=== PATIENT | male | born 1945 | race Caucasian/White ===

== ENCOUNTER → 2020-11-24 14:39 | Outpatient (CLI) | payer MEDICARE, BC, SELFPAY | PROVIDERS: PCP Nurse Practitioner; Referring Provider Internal Medicine Gastroenterology; Visit Provider Internal Medicine Gastroenterology | DX: Z11.59 Encounter for screening for other viral diseases (principal) | CPT/HCPCS: 87635; C9803; U0002 ==

== ENCOUNTER → 2022-02-02 | Outpatient (CLI) | payer MEDICARE, BC, SELFPAY ==
[2022-02-02 12:55] LABS: PSA,Total- Diagnostic 2.66 ng/mL (0.0-4.0)
== END | disposition home or self-care (01) ==
PROVIDERS: PCP Nurse Practitioner; Referring Provider Urology; Visit Provider Urology
DX: R97.20 Elevated prostate specific antigen [PSA] (principal)
CPT/HCPCS: 36415; 84153

== ENCOUNTER → 2022-02-09 | Outpatient (CLI) | payer MEDICARE, BC, SELFPAY ==
--- NOTE | 2022-02-09 07:12 | CT_ITS ---
STUDY: CT ABDOMEN AND PELVIS WITHOUT CONTRAST REASON FOR EXAM: Male, 77 years old. HEMATURIA RADIATION DOSAGE (If Supplied By Facility): CTDIvol = ( 11.98 ) mGy, DLP = ( 62.23 ) mGycm TECHNIQUE: Transaxial images were obtained from the dome of the diaphragm to the symphysis pubis without oral contrast, and without intravenous contrast. Sagittal and coronal images were reconstructed. Individualized dose optimization techniques were used for this CT. COMPARISON: None. FINDINGS: The visualized lung bases are unremarkable. The visualized portions of the heart are within normal limits. Normal liver. There are surgical clips in the gallbladder fossa consistent with a prior cholecystectomy. Normal spleen. Normal pancreas. Normal bilateral adrenal glands. Normal right kidney. Normal left kidney. There is a small hiatal hernia. Normal small intestine. Normal colon. There is non-visualization of the appendix. Normal abdominal aorta. Normal inferior vena cava. Normal retroperitoneum. Normal urinary bladder. Normal abdominal wall. Mild extra scoliosis of the lumbar spine with degenerative disc disease. CT/Abdomen/Pelvis without Cont IMPRESSION: No renal or ureteral stone. Electronically Signed: Emiliano Alexandre MD at 9:33 EDT ,
== END | disposition home or self-care (01) ==
LOC: CT 07:11
PROVIDERS: PCP Nurse Practitioner; Referring Provider Urology; Visit Provider Urology
DX: R31.9 Hematuria, unspecified (principal)
CPT/HCPCS: 74176

== ENCOUNTER 2022-04-12 14:39 | Emergency (ER) | payer MEDICARE, BC, SELFPAY ==
[2022-04-12 14:40] VITALS: BP 150/89; PULSE 90; RESP 16; TEMP 36.1; O2SAT 100; BMI 25.6
--- NOTE | 2022-04-12 14:50 | CT_ITS ---
STUDY: CT BRAIN WITHOUT CONTRAST REASON FOR EXAM: Male, 77 years old. fall, headache RADIATION DOSAGE (If Supplied By Facility): CTDIvol = ( 44.99 ) mGy, DLP = ( 812.98 ) mGycm TECHNIQUE: Transaxial CT imaging of the brain was performed without administration of intravenous contrast material. Individualized dose optimization techniques were used for this CT. COMPARISON: No relevant priors. FINDINGS: Normal soft tissue structures. Normal calvarium. There is mild cerebral atrophy with widening of the extra-axial spaces and ventricular dilatation. There are areas of decreased attenuation within the white matter tracts of the supratentorial brain, consistent with microvascular disease changes. Normal basal ganglia and thalami. Normal brainstem. Normal cerebellum. There is no intracranial hemorrhage. There are no findings of an acute ischemic infarction. Normal visualized paranasal sinuses. CT/Brain/Head without Contrast IMPRESSION: Chronic involutional changes of the brain. Electronically Signed: Emiliano Alexandre MD at 16:13 EDT ,
--- NOTE | 2022-04-12 14:51 | EKG12_ITS ---
Test Reason : confusion Blood Pressure : / mmHG Vent. Rate : 085 BPM Atrial Rate : 085 BPM P-R Int : 154 ms QRS Dur : 114 ms QT Int : 406 ms P-R-T Axes : 037 -41 015 degrees QTc Int : 483 ms Normal sinus rhythm Left axis deviation Right bundle branch block Minimal voltage criteria for LVH, may be normal variant ( R in aVL ) Abnormal ECG Confirmed by BABAR ALLISON, CHARLEY ([id number]), managing editor ALMA REYES ([id number]) on 04/13/2022 1:46:09 PM Referred By: Confirmed By:CHARLEY ECKERT MD
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
--- NOTE | 2022-04-12 15:35 | RAD_ITS ---
STUDY: X-RAY - LEFT SHOULDER REASON FOR EXAM: Male, 77 years old. pain TECHNIQUE: 4 view(s) of the shoulder. COMPARISON: None. FINDINGS: Normal glenohumeral articulation. Normal acromioclavicular joint. Normal acromion. Normal humeral head and visualized proximal humerus. The soft tissue structures are unremarkable. Normal visualized pulmonary apex. RAD/Shoulder min 2 Views IMPRESSION: Normal x-ray examination of the shoulder. Electronically Signed: Emiliano Alexandre MD at 15:57 EDT ,
--- NOTE | 2022-04-12 15:35 | RAD_ITS ---
STUDY: X-RAY CHEST REASON FOR EXAM: Male, 77 years old. chest wall pain TECHNIQUE: Single AP portable view of the chest. COMPARISON: None. FINDINGS: The lungs are clear and expanded. There is no demonstrated pleural abnormality. Normal size heart. Normal mediastinum and igor. Normal visualized pulmonary arteries. Normal visualized aortic arch and descending thoracic aorta. Normal visualized thoracic spine. Normal visualized ribs, clavicles, and shoulders. There is no demonstrated abnormality of the visualized soft tissue structures of the upper abdomen. RAD/Chest 1 View (Portable) IMPRESSION: Normal x-ray examination of the chest. Electronically Signed: Emiliano Alexandre MD at 15:58 EDT ,
[2022-04-12 15:40] LABS: Absolute Lymphocyte Count 1.71 X10^3/uL (0.83-4.51); Basophil# 0.03 X10^3/uL; Basophil% 0.3 % (0-1); Eosinophil# 0.12 X10^3/uL; Eosinophils% 1.2 % (0-5); Hemoglobin 12.4 g/dL (13.0-16.5); Lymphocyte # 1.71 X10^3/ul (0.83-4.51); Lymphocyte % 17.8 % (19-41); Mean Corp Hgb Conc 34.4 g/dL (32-36); Monocyte# 0.71 X10^3/uL; Monocyte% 7.4 % (0-10); NRBC Flagged by Analyzer 0 % (0-5); Neutrophil # 7.02 X10^3/uL (2.7-7.7); Neutrophil % 72.9 % (47-70); Platelet Count 223 K/mm3 (150-450); RBC Distribution Width CV 13.6 % (11.6-14.6); RBC Distribution Width SD 45.8 fl (35.1-43.9); Red Blood Count 3.87 M/mm3 (4.6-6.2); White Blood Count 9.6 K/mm3 (4.4-11.0)
[2022-04-12 15:44] LABS: Anion Gap 4 (5-15); BUN 14 mg/dL (7-18); BUN/Creat Ratio 11.5 RATIO (10-20); Chloride 107 mmol/L (98-107); Creatinine, Serum 1.22 mg/dL (0.70-1.30); EST Glomerular Filtration Rate 61 mL/min (>60); Est Glom Filt Rate - Afr Amer 74 mL/min (>60); Estimated Creatinine Clearance 53.89 ml/min; Glucose 114 mg/dL (74-106); Potassium 3.3 mmol/L (3.5-5.1); Sodium Level 140 mmol/L (136-145)
[2022-04-12 15:51] LABS: Bedside Glucose 106 mg/dL (74-106)
[2022-04-12 16:43] VITALS: BP 129/84; PULSE 76; RESP 17; O2SAT 99
== END 2022-04-12 16:43 | disposition home or self-care (01) ==
PROVIDERS: Physician Assistant; Emergency Provider Emergency Medicine; PCP Nurse Practitioner Family; Visit Provider Emergency Medicine
DX: S06.0X0A Concussion without loss of consciousness, initial encounter (principal); S43.402A Unspecified sprain of left shoulder joint, initial encounter; E03.9 Hypothyroidism, unspecified; Z79.899 Other long term (current) drug therapy; W11.XXXA Fall on and from ladder, initial encounter; I45.10 Unspecified right bundle-branch block
CPT/HCPCS: 70450; 71045; 73030; 80048; 82962; 85025; 93005; 99283; A4216

== ENCOUNTER 2022-05-22 09:30 | Outpatient (RCR) | payer MEDICARE, BC, SELFPAY ==
--- NOTE | 2022-04-23 10:39 | HP.PTEVAL ---
Patient's Visit Information MAKSIM OBRIEN is a 77 year old M referred to Physical Therapy by DEMARCO Thornton with a diagnosis of Distal Clav Fracture. Date of Evaluation: 04/23/22 Physical Therapist: Keturah Felipe DPT - Visit Plan Frequency: 2x /Week Duration: 4 Weeks Plan: Distal Clav Fracture- GENTLE. Focus on UE ROM and Scapular s/s. HEP Given IE: Posture, Shoulder Flexion Cane, Shoulder Abduction Cane, Wall Wash- educated in sling use for crowds. - Subjective Left Distal Clav Fracture- Patient reports that he fell off a step ladder about 2 weeks ago. He went to the ER- he was unconscious and still does not remember the accident. They took an x-ray which showed that it was not broken but he has had recent x-rays which showed it was broken. On Saturday they brought him back to have x-rays done since the swelling is down. Distal Clav Fracture. Reports the pain is achy in the shoulder- and can be the most painful when he ties his shoes. Worst: 06/11 Best: 2-11/09. Eases: massage. Sleep: disturbed- takes pain medication at night which helps him sleep- but its hard because he sleeps on the left side. Right hand dominate. He does not wear a sling because its uncomfortable. Lives with his and she is able to help as needed. He was fully I prior to fall and can still do it with modification. He has a hard time getting his socks/shoes on due to pain. He is normally pretty active - he does exercise throughout the day. PMHx/Meds: no changes since [facility]- addition of Gallbladder surgery. - Objective Posture: FH, RS- can correct with verbal cues but does not maintain. Gait: decreased left side arm swing and trunk rotation. Palpation: tender along distal clav with light pressure. ROM: AROM: flexion: 130 degrees, Abd: 120 degrees, IR: equal to other side, ER: 50 degrees, Elbow/Wrist/Hand: WFL. Strength: scap: fair minus, Shoulder isometric at neutral: 4+/5 without discomfort - Balance/Special Test Scores Quick DASH Score: 54.5450 - Goals Goal 1:: Patient will be I with HEP and progression Goal Time Frame: 4-6 Weeks Goal 2:: Patient will maintain proper posture t/o tx session to demo increased core s/s Goal Time Frame: 4-6 Weeks Goal 3:: Patient will demo full AROM of the left shoulder Goal Time Frame: 4-6 Weeks Goal 4:: Patient will report 80% improvement Goal Time Frame: 4-6 Weeks Goal 5:: Patient will sleep without issues for 1 week Goal Time Frame: 4-6 Weeks - Rehabilitation Potential Physical Therapy Diagnosis: Patient presents with hypomobility- he has decreased UE strength/stabilization, ROM, flex and muscular endurance s/p fall and distal clav fracture leading to poor posture and increased pain with ADL's. Rehabilitation Potential: Good - Anticipated Interventions Patient/Client Instruction: Educate patient on: Benefits of Fitness Program Therapeutic Exercise to Include: Strength training, Endurance training, Body mechanics, Postural training, Flexibilty training, Neuromotor development, Passive ROM, Active ROM, Dynamic Lumbar Stabilization, Scapular Strength/Stabilization For the Purpose of:: To improve muscle performance and motor function Cryotherapy (ice pack, ice massage): Yes Thermo therapy (hot pack): Yes Thank you for the opportunity to evaluate your patient. For Medicare and Medicare HMO plans, please review the plan of care and approve it. It will need to be FAXED BACK to us at [phone] for Medicare purposes. For Medicare only, by signing this I certify the plan of care. Please let me know if there are questions or concerns regarding this plan of care. Physician Signature: Date:
--- NOTE | 2022-05-22 10:12 | HP.PTDCSUM ---
It has been my pleasure to treat MAKSIM OBRIEN referred by DEMARCO Thornton, with the diagnosis of LEFT Distal Clav Fracture for a total of 9 visit(s). Discharge Date: Please see the following information for a summary of their discharge status. Subjective: Patient reports that he has no pain- knows its still healing. Does not keep him from sleeping- he does take OTC the medication prior to coming to therapy. At this time there is nothing he can't do. He is not lifting with the left shoulder. He is tending to shy away from using it to avoid issues. Right hand dominate. He feels comfortable doing all of his exercises at home. % Improvement: 100 Objective/Function: Posture: mild FH, RS. Gait: good arm swing and trunk rotation Palpation: not tender to touchROM: AROM: WNL in all planes, Elbow/Wrist/Hand: WFL. Strength: scap: fair plus, Shoulder isometric at neutral: 5/5 without discomfort Goal 1:: Patient will be I with HEP and progression Goal Progress: Goal Met Goal 2:: Patient will maintain proper posture t/o tx session to demo increased core s/s Goal Progress: Goal Met Goal 3:: Patient will demo full AROM of the left shoulder Goal Progress: Goal Met Goal 4:: Patient will report 80% improvement Goal Progress: Goal Met Goal 5:: Patient will sleep without issues for 1 week Goal Progress: Goal Met Plan: 05/22/22: Discharge to I HEP- encouraged to call if questions or concerns. Distal Clav Fracture- GENTLE. Focus on UE ROM and Scapular s/s. HEP Given IE: Posture, Shoulder Flexion Cane, Shoulder Abduction Cane, Wall Wash- educated in sling use for crowds. If there are questions or concerns regarding this patient's physical therapy, please feel free to call me at [phone]. Thank you for the referral of this patient. Sincerely, Keturah Felipe, DPT Balance/Gait/Functional tests - Balance/Special Test Scores Quick DASH Score: 0
== END 2022-05-22 19:00 | disposition home or self-care (01) ==
LOC: PT 09:30
PROVIDERS: PCP Nurse Practitioner Family; Referring Provider Physician Assistant Surgical; Visit Provider Physician Assistant Surgical
DX: S40.012D Contusion of left shoulder, subsequent encounter (principal)
CPT/HCPCS: 97110; 97162; 97164

== ENCOUNTER → 2023-03-25 | Outpatient (CLI) | payer MEDICARE, BC, SELFPAY ==
[2023-03-25 11:22] LABS: Absolute Lymphocyte Count 1.97 X10^3/uL (0.83-4.51); Basophil# 0.03 X10^3/uL; Basophil% 0.4 % (0-1); Eosinophil# 0.21 X10^3/uL; Eosinophils% 3.1 % (0-5); Hematocrit 39.6 % (40-54); Hemoglobin 13.1 g/dL (13.0-16.5); Lymphocyte # 1.97 X10^3/ul (0.83-4.51); Lymphocyte % 29.2 % (19-41); Mean Corp Hgb Conc 33.1 g/dL (32-36); Mean Corpuscular Hgb 31.6 pg (27.0-32.0); Mean Corpuscular Volume 95.4 fL (80-94); Mean Platelet Vol. 11.2 fl (6.2-12.0); Monocyte# 0.49 X10^3/uL; Monocyte% 7.3 % (0-10); NRBC Flagged by Analyzer 0 % (0-5); Neutrophil # 4.04 X10^3/uL (2.7-7.7); Neutrophil % 59.9 % (47-70); Platelet Count 213 K/mm3 (150-450); RBC Distribution Width CV 13.2 % (11.6-14.6); RBC Distribution Width SD 46.7 fl (35.1-43.9); RET-HE 34.6 pg (30-35); Red Blood Count 4.15 M/mm3 (4.6-6.2); Reticulocyte Count 1.32 % (0.5-1.5); White Blood Count 6.8 K/mm3 (4.4-11.0)
[2023-03-25 11:52] LABS: Vitamin B12 791 pg/mL (211-911); Vitamin D,25 Hydroxy 41.2 ng/mL
[2023-03-25 13:43] LABS: PSA,Total- Diagnostic 2.43 ng/mL (0.0-4.0)
== END | disposition home or self-care (01) ==
PROVIDERS: PCP Nurse Practitioner Family; Referring Provider Nurse Practitioner Family; Visit Provider Nurse Practitioner Family
DX: N40.1 Benign prostatic hyperplasia with lower urinary tract symptoms (principal); E55.9 Vitamin D deficiency, unspecified; D64.9 Anemia, unspecified
CPT/HCPCS: 36415; 82306; 82607; 82746; 84153; 85025; 85045

== ENCOUNTER → 2023-04-12 | Outpatient (CLI) | payer MEDICARE, BC, SELFPAY ==
--- NOTE | 2023-04-12 07:39 | RDU_ITS ---
Reason For Study: HTN Right Renal Artery Left Renal Artery Right renal artery ostium Left renal artery ostium 100.8/27.8 155.2/38.6 RSV/EDV. PSV/EDV. Right renal artery proximal Left renal artery proximal PSV/EDV 155.2/41.2 PSV/EDV. 100.8/25.9 . Right renal artery mid 113.7/36.0 Left renal artery mid 92.0/26.1 PSV/EDV. PSV/EDV . Right renal artery distal Left renal artery distal 76.1/25.7 140.8/37.7 PSV/EDV. PSV/EDV. Right RAR 1.58. Left RAR 1.02. Right Renal Parenchyma Left Renal Parenchyma Upper Pole Medula 37.3/11.5 Left upper pole medulla 27.4/10.3 PSV/EDV. PSV/EDV . Right upper pole medulla EDR 0.30 . Left upper pole medulla EDR 0.40 . Right upper pole medulla R.I. Left upper pole medulla R.I. 0.62 . 0.69 . UP Cortex 17.0/6.1 PSV/EDV. Upper Samm Cortx 25.2/8.2 PSV/EDV. Left upper pole cortex EDR 0.40 . Right upper pole cortex EDR 0.30 . Left upper pole cortex R.I. 0.64 . Right upper pole cortex R.I. 0.68 . Left lower Pole medulla 19.8/7.5 Right lower Pole medulla 24.1/8.7 PSV/EDV . PSV/EDV . Left lower pole medulla EDR 0.40 . Right lower pole medulla EDR 0.40 . Left lower pole medulla R.I. 0.62 . Right lower pole medulla R.I. Lower Pole Cortx 16.5/5.6 PSV/EDV. 0.64 . Left lower pole cortex EDR 0.30 . Lower Pole Cortex 18.1/7.1 PSV/EDV. Left lower pole cortex R.I. 0.66 . Right lower pole cortex EDR 0.40 . Left Renal Hilar Right lower pole cortex R.I. 0.61 . LT Hilar avg 64.4/20.5 PSV/EDV . Right Renal Hilar Left hilar acceleration time 50 Right Hilar avg 73.2/25.1 PSV/EDV. m/sec. Right hilar acceleration time 40 Left Renal Dimensions m/sec. Left kidney size 10.01 cm . Right Renal Dimensions Left cortical dimension 1.57 cm . Right kidney size 10.49 cm . Right cortical dimension 1.60 cm . Aorta Proximal abdominal aorta 2.16 cm . Proximal abdominal aorta peak systolic velocity is 71.4 cm/sec . Distal abdominal aorta 1.62 cm . Distal abdominal aorta peak systolic velocity is 98.5 cm/sec . VL/Renal Artery Duplex Ultrasound Interpretation Summary Less than 60% stenosis of the right renal artery with maintained of the right r enal length of 10.49 cm Less than 60% stenosis left renal artery with maintained left renal length of 1 0.01 cm Renal resistivity indices appear normal bilaterally suggesting maintained paren chymal function Ordering Physician: Sylvia Trevizo Referring Physician: Sylvia Trevizo Performed By: Keny Trujillo RVT
== END | disposition home or self-care (01) ==
LOC: CVS 07:38
PROVIDERS: PCP Nurse Practitioner Family; Referring Provider Nurse Practitioner Family; Visit Provider Nurse Practitioner Family
DX: I10 Essential (primary) hypertension (principal)
CPT/HCPCS: 93975

== ENCOUNTER → 2023-10-24 | Outpatient (CLI) | payer MEDICARE, BC, SELFPAY ==
--- NOTE | 2023-10-24 08:03 | ECHOD_ITS ---
Reason For Study: HTN Procedure This was a 2D Doppler, Color Flow transthoracic echocardiogram. Exam performed in department. Left Ventricle Normal left ventricle. Left ventricular systolic function is normal. The estimated ejection fraction is 60 %. No regional wall motion abnormalities noted. Right Ventricle Normal RV size. Normal systolic function. Atria Normal left atrium. Mitral Valve Normal mitral valve. Tricuspid Valve Normal tricuspid valve. Mild (1+) tricuspid valve insufficiency. Pulmonary artery systolic pressure is 24 mmHg. Aortic Valve Normal aortic valve. Trisinus/trileaflet aortic valve. Mild (1+) aortic valve insufficiency. Pulmonic Valve Normal pulmonic valve. Great Vessels Normal aortic root. The pulmonary artery is normal size. Normal inferior vena cava. Pericardium/Pleural No pericardial effusion. MMode/2D Measurements & Calculations LVIDd: 4.4 cm IVSd: 0.71 cm Ao root diam: 3.1 cm LVIDs: 2.5 cm LVPWd: 1.1 cm FS: 42.7 % LAV(MOD-bp): 54.1 ml LVAd ap4: 32.9 cm2 LVAd ap2: 20.8 cm2 LAV(MOD-bp) Indexed: 26.3 ml/m2 LVLd ap4: 8.3 cm LVLd ap2: 6.9 cm LAV(MOD-sp2): 59.2 ml EDV(MOD-sp4): 108.5 ml EDV(MOD-sp2): 54.7 ml LAV(MOD-sp4): 44.4 ml EDV(sp4-el): 111.4 ml EDV(sp2-el): 53.7 ml LVAs ap4: 19.8 cm2 LVAs ap2: 12.7 cm2 LVLs ap4: 6.7 cm LVLs ap2: 5.8 cm ESV(MOD-sp4): 48.3 ml ESV(MOD-sp2): 24.0 ml ESV(sp4-el): 49.6 ml ESV(sp2-el): 23.3 ml EF(MOD-sp4): 55.5 % EF(MOD-sp2): 56.0 % EF(sp4-el): 55.5 % SV(MOD-sp4): 60.2 ml SV(MOD-sp2): 30.6 ml SV(sp4-el): 61.8 ml LA dimension(2D): 3.9 cm LA A4 area: 16.1 cm2 RA A4 area: 17.5 cm2 TAPSE: 2.6 cm Time Measurements MV dec time: 0.27 sec Doppler Measurements & Calculations MV E max miller: 73.2 cm/sec Lat Peak E' Miller: 9.4 cm/sec Med Peak E' Miller: 6.4 cm/sec MV A max miller: 114.5 cm/sec E/E' lat: 7.8 E/E' med: 11.4 MV E/A: 0.64 MV V2 max: 135.2 cm/sec MV P1/2t max miller: 90.5 cm/sec Ao V2 max: 154.3 cm/sec MV max P.3 mmHg MV P1/2t: 89.8 msec Ao max P.5 mmHg MV V2 mean: 66.0 cm/sec MV dec slope: 295.3 cm/sec2 Ao V2 mean: 113.2 cm/sec MV mean P.1 mmHg Ao mean P.7 mmHg MV V2 VTI: 33.5 cm MVA(P1/2t): 2.4 cm2 Ao V2 VTI: 29.6 cm AV (velocity ratio): 0.64 AI max miller: 379.3 cm/sec LV V1 max: 100.5 cm/sec PA V2 max: 118.2 cm/sec AI max P.5 mmHg LV V1 max P.0 mmHg PA V2 mean: 88.1 cm/sec AI dec slope: 198.5 cm/sec2 LV V1 mean P.3 mmHg AI P1/2t: 559.8 msec LV V1 mean: 71.0 cm/sec LV V1 VTI: 18.9 cm TR max miller: 228.4 cm/sec TR max P.9 mmHg ECHO/Echo Complete Interpretation Summary Normal left ventricle. Left ventricular systolic function is normal. The estimated ejection fraction is 60 %. Mild (1+) aortic valve insufficiency. Ordering Physician: Sylvia Trevizo Referring Physician: Sylvia Trevizo Performed By: Honey Kaye RDCS, RVT
--- OUTSIDE RECORDS SUMMARY | 2023-10-24 08:27 | XMS RPT_ITS | CCD ---
Author Name Unknown Address [address] [place] [address] Organization [facility] Care Team Providers Care Classifier Tender Name Role Phone Masha Rouse Unavailable Rosalinda Dia Unavailable Maureen Thorne Unavailable Unavailable Unavailable Unavailable Ruy Hansen Unavailable Unavailable Ruy Miner Unavailable Unavailable Masha Rouse CNP Unavailable Rosalinda Dia MD Unavailable Ruy Miner LPN Unavailable Unavailable Unavailable Unavailable Keith Alvarez MD Unavailable [phone] Masha Rouse Unavailable Rosalinda Dia MD Unavailable Shiela Butler LPN Unavailable Unavailable Sylvia Trevizo CNP Unavailable Masha Rouse Unavailable Sylvia Trevizo CNP Unavailable Yoli Lyons LPN Unavailable Unavailable Tamika Chicas MA Unavailable Unavailable Sylvia Trevizo CNP Attending Unavailable Masha Rouse Referring Unavailable Sylvia Trevizo CNP Consulting Unavailable Augusta Gavin CMA Unavailable Unavailable Medications Current Medications Medication Drug Class(es) Dates Sig (Normalized) Sig (Original) vitamin b12 2.5 mg sublingual tablet (20 sources) Vitamin B12 Start: 07-03-2023 take 1 tablet under the tongue every week cyanocobalamin (vit B-12) 2,500 mcg sublingual tablet 1 (one) Tablet once a week for 0 days Quantity: 30 {Tablet} Refills: 6 Ordered: 03-Jul-2023 Santhosh RACHELLESylvia Start : 03-Jul-2023 Active Completed/Discontinued Medications Medication Drug Class(es) Dates Sig (Normalized) Sig (Original) amLODIPine 5 mg oral tablet (5 sources) Dihydropyridine Calcium Channel Logan Start: 06-27-2023 take 1 tablet by mouth once daily amLODIPine 5 mg oral tablet 1 Tablet daily for 90 days Quantity: 90 {Tablet} Refills: 1 Ordered: 27-Jun-2023 Santhosh RACHELLESylvia Start : 27-Jun-2023 Active Problems Active Problems Problem Classification Problem Date Documented Da te Episodic/Chronic Abdominal hernia (20 sources) Hiatal hernia; Translations: [Hiatal hernia] 06-11-2022 Episodic Past or Other Problems Problem Classification Problem Date Documented Date Episodic/Chronic Residual codes; unclassified (9 sources) Requires a tetanus booster; Translations: [Need for prophylactic vaccination with tetanus toxoid alone] Resolved: 05-18-2016 05-18-2016 Episodic Unclassified (20 sources) Low HDL (272.5) Unclassified (20 sources) Well Male Exam (V70.0) Unclassified (20 sources) Unspecified Diagnosis 04-22-2018 Unclassified (20 sources) Abnormal Cardiac Test (794.30) Unclassified (20 sources) Need for prophylactic vaccination with tetanus toxoid alone (V03.7) Unclassified (20 sources) Preprocedural examination done; Translations: [Pre-op evaluation] 03-29-2020 Results Test Name Value Interpretation Reference Range Facil ity Vital Signs Date Time Vital Sign Value Performing Clinician Facility 04-09-2023 09:38-0400 Body height 180.34 cm Augusta Gavin [facility]; [facility] Work Phone: 04-09-2023 09:38-0400 Body mass index (BMI) [Ratio] 27.27 kg/m2 Augusta Gavin [facility]; [facility] Work Phone: 04-09-2023 09:38-0400 Body surface area Derived from formula 2.09 m2 Augusta Gavin CMA [facility]; [facility] Work Phone: 04-09-2023 09:38-0400 Body temperature 97.2 [degF] Augusta Gavin [facility] Comprehensi ve [facility]; [facility] Work Phone: Encounters Encounter Date Encounter Type Care Provider Facility Start: 04-09-2023 End: 04-19-2023 Office outpatient visit 15 minutes Sylvia Trevizo RACHELLE Work Phone: [facility] Start: 04-09-2023 Review Sylvia Trevizo RACHELLE Work Phone: [facility] Start: 03-26-2023 End: 03-26-2023 Office outpatient visit 15 minutes Sylvia Trevizo RACHELLE Work Phone: [facility] Start: 03-09-2023 End: 03-09-2023 Patient encounter procedure Sylvia Trevizo RACHELLE Work Phone: [facility] Start: 12-25-2022 ambulatory Sylviadomenica Trevizo [facility] Start: 12-25-2022 End: 01-07-2023 Office outpatient visit 15 minutes Sylviadomenica Trevizo RACHELLE Work Phone: [facility] Start: 12-25-2022 Review Sylvia Trevizo 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 Work Phone: [facility] Start: 06-05-2022 End: 06-11-2022 Office outpatient visit 15 minutes Sylviadomenica Trevizo RACHELLE Work Phone: [facility] Start: 05-08-2022 End: 05-15-2022 Office outpatient visit 15 minutes Sylviadomenica Trevizo RACHELLE Work Phone: [facility] Start: 12-05-2021 End: 12-05-2021 Office outpatient visit 15 minutes Masha Rouse Work Phone: [facility] Start: 11-27-2021 End: 11-27-2021 Office outpatient visit 10 minutes Masha Boyceisaias Work Phone: [facility] Start: 11-22-2021 End: 11-22-2021 Annotation/Addendum Masha Boyceisaias Work Phone: [facility] Start: 08-14-2021 End: 08-14-2021 Annotation/Addendum Masha Boyceisaias BUSH Work Phone: [facility] Start: 06-30-2021 End: 06-30-2021 Office outpatient visit 25 minutes Masha Rouse 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 Work Phone: [facility] Start: 12-28-2020 End: 12-28-2020 Office outpatient visit 15 minutes Masha Rouse 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 Work Phone: [facility] Start: 12-28-2020 Review Masha Rouse 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 Work Phone: [facility] Start: 06-29-2020 End: 06-29-2020 Office outpatient visit 25 minutes Masha Boyceisaias [facility] Start: 06-29-2020 Review Masha Rouse Comprehens jessica [facility] Start: 03-29-2020 Review Masha Rouse Comprehens j[facility] Start: 03-29-2020 End: 03-29-2020 Office outpatient visit 25 minutes Masha Restrepojere [facility] Start: 03-23-2020 End: 03-23-2020 Annotation/Addendum Masha Rouse [facility] Start: 12-23-2019 End: 12-23-2019 Office outpatient visit 25 minutes Masha Boyceisaias [facility] Start: 12-23-2019 End: 12-23-2019 Preprocedural examination done Sylvia Trevizo CNP Work Phone: [facility] Start: 10-23-2019 End: 10-23-2019 Office outpatient visit 15 minutes Masha Boyceisaias [facility] Start: 10-23-2019 End: 10-23-2019 Preprocedural examination done Sylvia Trevizo CNP Work Phone: [facility] Start: 10-21-2019 End: 10-21-2019 Office outpatient visit 15 minutes Masha Boyceisaias [facility] Start: 10-08-2019 End: 10-09-2019 Annotation/Addendum Masha Kayejere [facility] Start: 10-07-2019 End: 10-07-2019 Office outpatient visit 25 minutes Masha Rouse [facility] Start: 04-22-2018 End: 04-22-2018 Office outpatient visit 25 minutes Masha Rouse [facility] Start: 05-18-2016 End: 05-18-2016 Office outpatient visit 25 minutes Masha Rouse [facility] Start: 10-18-2015 End: 10-20-2015 Office outpatient visit 25 minutes Masha Boyceisaias [facility] Start: 10-18-2015 End: 10-18-2015 Office outpatient visit 40 minutes Masha Rouse [facility] Start: 10-18-2015 End: 10-18-2015 Physical examination Sylvia Trevizo RACHELLE Work Phone: [facility] Start: 10-11-2015 End: 10-11-2015 Lab Order Masha Carliisaias [facility] Start: 08-24-2014 End: 08-24-2014 Phone Encounter Masha Rouse [facility] Start: 08-09-2014 End: 08-10-2014 Patient encounter status Sylvia Trevizo RACHELLE Work Phone: [facility] Start: 08-09-2014 End: 08-10-2014 Periodic preventive med est patient 18-39 yrs Masha Boyceisaias [facility] Start: 07-06-2013 End: 07-09-2013 Patient encounter procedure Masah Padma [facility] Start: 07-06-2013 End: 07-09-2013 Patient encounter status Sylvia Trevizo RACHELLE Work Phone: [facility] Start: 02-14-2011 End: 02-14-2011 Patient encounter procedure Masha Boyceisaias [facility] Start: 11-06-2010 End: 11-06-2010 Office outpatient visit 25 minutes Masha Boyceisaias [facility] Start: 03-03-2008 End: 03-03-2008 Patient encounter procedure Masha Boyceisaias [facility] Start: 02-26-2008 End: 02-26-2008 Patient encounter procedure Masha Rouse [facility] Start: 01-28-2008 End: 01-28-2008 Patient encounter procedure Masha Boyceisaias [facility] Start: 01-21-2008 End: 01-21-2008 Patient encounter procedure Masha Boyceisaias [facility] Start: 12-23-2006 End: 12-23-2006 Historical Summary Masha Carliisaias [facility] Start: 08-05-2006 End: 08-05-2006 Office outpatient visit 10 minutes Masha Carliisaias [facility] Start: 07-08-2006 End: 07-08-2006 Office outpatient visit 25 minutes Masha Carliisaias [facility] Start: 07-04-2006 End: 07-04-2006 Historical Summary Masha Restrepovictor manuelisaias [facility] Physical examination Ruy Miner LPN [facility] prehensive Internal Medicine; [facility] Work Phone: Procedures Date Procedure Procedure Detail Performing Clinician Start: 04-12-2023 End: 04-12-2023 Renal Artery Duplex Ultrasound Procedure Note: See Note; NOTES: [facility] [place] [address] Renal Artery Duplex Ultrasound 04/12/23 0817 MR#: [id number] Acct: [id number] Name: MAKSIM OBRIEN Rep #: [id number] : 1945 78 From: Patricio Raines MD Attending Dr: Sylvia Trevizo CLINICAL SCIENCE LIAISON-C Status: REG CLI Ordering Dr: Sylvia Trevizo CLINICAL SCIENCE LIAISON-C Date: 04/12/23 Location: [facility] Sex: M C Admitted: Reason For Study: HTN Right Renal Artery Left Renal Artery Right renal artery ostium Left renal artery ostium 100.8/27.8 155.2/38.6 RSV/EDV. PSV/EDV. Right renal artery proximal Left renal artery proximal PSV/EDV 155.2/41.2 PSV/EDV. 100.8/25.9 . Right renal artery mid 113.7/36.0 Left renal artery mid 92.0/26.1 PSV/EDV. PSV/EDV . Right renal artery distal Left renal artery distal 76.1/25.7 140.8/37.7 PSV/EDV. PSV/EDV. Right RAR 1.58. Left RAR 1.02. Right Renal Parenchyma Left Renal Parenchyma Upper Pole Medula 37.3/11.5 Left upper pole medulla 27.4/10.3 PSV/EDV. PSV/EDV . Right upper pole medulla EDR 0.30 . Left upper pole medulla EDR 0.40 . Right upper pole medulla R.I. Left upper pole medulla R.I. 0.62 . 0.69 . UP Cortex 17.0/6.1 PSV/EDV. Upper Samm Cortx 25.2/8.2 PSV/EDV. Left upper pole cortex EDR 0.40 . Right upper pole cortex EDR 0.30 . Left upper pole cortex R.I. 0.64 . Right upper pole cortex R.I. 0.68 . Left lower Pole medulla 19.8/7.5 Right lower Pole medulla 24.1/8.7 PSV/EDV . PSV/EDV . Left lower pole medulla EDR 0.40 . Right lower pole medulla EDR 0.40 . Left lower pole medulla R.I. 0.62 . Right lower pole medulla R.I. Lower Pole Cortx 16.5/5.6 PSV/EDV. 0.64 . Left lower pole cortex EDR 0.30 . Lower Pole Cortex 18.1/7.1 PSV/EDV. Left lower pole cortex R.I. 0.66 . Right lower pole cortex EDR 0.40 . Left Renal Hilar Right lower pole cortex R.I. 0.61 . LT Hilar avg 64.4/20.5 PSV/EDV . Right Renal Hilar Left hilar acceleration time 50 Right Hilar avg 73.2/25.1 PSV/EDV. m/sec. Right hilar acceleration time 40 Left Renal Dimensions m/sec. Left kidney size 10.01 cm . Right Renal Dimensions Left cortical dimension 1.57 cm . Right kidney size 10.49 cm . Right cortical dimension 1.60 cm . Aorta Proximal abdominal aorta 2.16 cm . Proximal abdominal aorta peak systolic velocity is 71.4 cm/sec . Distal abdominal aorta 1.62 cm . Distal abdominal aorta peak systolic velocity is 98.5 cm/sec . VL/Renal Artery Duplex Ultrasound Interpretation Summary Less than 60% stenosis of the right renal artery with maintained of the right renal length of 10.49 cm Less than 60% stenosis left renal artery with maintained left renal length of 10.01 cm Renal resistivity indices appear normal bilaterally suggesting maintained parenchymal function Ordering Physician: Sylvia Trevizo Referring Physician: Sylvia Trevizo Performed By: Keny Trujillo RVT 04/12/231135 Date Patricio Raines MD CC: CLINICAL SCIENCE LIAISON-C Sylvia Trevizo Date Dictated: 04/12/23816 Date Transcribed: 04/12/231135 Thread Spinner: Signed Sylvia Santhosh 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 Work Phone: Start: 05-22-2022 End: 05-22-2022 PT D/C Summary (1) Procedure Note: See Note; NOTES: [facility] [address] [place] [address] / REHABILITATION SERVICES DISCHARGE SUMMARY MR#: [id number] Acct: [id number] Name: MAKSIM OBRIEN Rep #: [id number] : 1945 77 From: Keturah Felipe DPT Referring Dr.: DEMARCO Conti Status: REG RCR Insurance: MEDICARE PART A B ANTHEM It has been my pleasure to treat MAKSIM OBRIEN referred by DEMARCO Thornton, with the diagnosis of LEFT Distal Clav Fracture for a total of 9 visit(s). Discharge Date: Please see the following information for a summary of their discharge status. Subjective: Patient reports that he has no pain- knows its still healing. Does not keep him from sleeping- he does take OTC the medication prior to coming to therapy. At this time there is nothing he can't do. He is not lifting with the left shoulder. He is tending to shy away from using it to avoid issues. Right hand dominate. He feels comfortable doing all of his exercises at home. % Improvement: 100 Objective/Function: Posture: mild FH, RS. Gait: good arm swing and trunk rotation Palpation: not tender to touchROM: AROM: WNL in all planes, Elbow/Wrist/Hand: WFL. Strength: scap: fair plus, Shoulder isometric at neutral: 5/5 without discomfort Goal 1:: Patient will be I with HEP and progression Goal Progress: Goal Met Goal 2:: Patient will maintain proper posture t/o tx session to demo increased core s/s Goal Progress: Goal Met Goal 3:: Patient will demo full AROM of the left shoulder Goal Progress: Goal Met Goal 4:: Patient will report 80% improvement Goal Progress: Goal Met Goal 5:: Patient will sleep without issues for 1 week Goal Progress: Goal Met Plan: 05/22/22: Discharge to HEP- encouraged to call if questions or concerns. Distal Clav Fracture- GENTLE. Focus on UE ROM and Scapular s/s. HEP Given IE: Posture, Shoulder Flexion Cane, Shoulder Abduction Cane, Wall Wash- educated in sling use for crowds. If there are questions or concerns regarding this patient's physical therapy, please feel free to call me at [phone]. Thank you for the referral of this patient. Sincerely, Keturah Felipe DPT Balance/Gait/Functional tests - Balance/Special Test Scores Quick DASH Score: 0 <Electronically signed by Keturah ROBLEROT> 05/22/22 1012 CC: GISELE Trevizo; DEMARCO Conti ELR Signed Sylvia Trevizo 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 Work Phone: Start: 04-23-2022 End: 04-23-2022 Inital Evaluation (1) - PT Procedure Note: See Note; NOTES: [facility] [address] [place] [address] / REHABILITATION SERVICES INITIAL EVALUATION MR#: [id number] Acct: [id number] Name: MAKSIM OBRIEN Rep #: [id number] : 1945 77 From: Keturah Felipe DPT Referring Dr.: DEMARCO Conti Status: REG RCR Insurance: MEDICARE PART A B ANTH Patient's Visit Information MAKSIM OBRIEN is a 77 year old M referred to Physical Therapy by DEMARCO Thornton with a diagnosis of Distal Clav Fracture. Date of Evaluation: 04/23/22 Physical Therapist: Keturah Felipe DPT - Visit Plan Frequency: 2x /Week Duration: 4 Weeks Plan: Distal Clav Fracture- GENTLE. Focus on UE ROM and Scapular s/s. HEP Given IE: Posture, Shoulder Flexion Cane, Shoulder Abduction Cane, Wall Wash- educated in sling use for crowds. - Subjective Left Distal Clav Fracture- Patient reports that he fell off a step ladder about 2 weeks ago. He went to the ER- he was unconscious and still does not remember the accident. They took an x-ray which showed that it was not broken but he has had recent x-rays which showed it was broken. On Saturday they brought him back to have x-rays done since the swelling is down. Distal Clav Fracture. Reports the pain is achy in the shoulder- and can be the most painful when he ties his shoes. Worst: 06/11 Best: 2-11/09. Eases: massage. Sleep: disturbed- takes pain medication at night which helps him sleep- but its hard because he sleeps on the left side. Right hand dominate. He does not wear a sling because its uncomfortable. Lives with his and she is able to help as needed. He was fully I prior to fall and can still do it with modification. He has a hard time getting his socks/shoes on due to pain. He is normally pretty active - he does exercise throughout the day. PMHx/Meds: no changes since [facility]- addition of Gallbladder surgery. - Objective Posture: FH, RS- can correct with verbal cues but does not maintain. Gait: decreased left side arm swing and trunk rotation. Palpation: tender along distal clav with light pressure. ROM: AROM: flexion: 130 degrees, Abd: 120 degrees, IR: equal to other side, ER: 50 degrees, Elbow/Wrist/Hand: WFL. Strength: scap: fair minus, Shoulder isometric at neutral: 4+/5 without discomfort - Balance/Special Test Scores Quick DASH Score: 54.5450 - Goals Goal 1:: Patient will be I with HEP and progression Goal Time Frame: 4-6 Weeks Goal 2:: Patient will maintain proper posture t/o tx session to demo increased core s/s Goal Time Frame: 4-6 Weeks Goal 3:: Patient will demo full AROM of the left shoulder Goal Time Frame: 4-6 Weeks Goal 4:: Patient will report 80% improvement Goal Time Frame: 4-6 Weeks Goal 5:: Patient will sleep without issues for 1 week Goal Time Frame: 4-6 Weeks - Rehabilitation Potential Physical Therapy Diagnosis: Patient presents with hypomobility- he has decreased UE strength/stabilization, ROM, flex and muscular endurance s/p fall and distal clav fracture leading to poor posture and increased pain with ADL's. Rehabilitation Potential: Good - Anticipated Interventions Patient/Client Instruction: Educate patient on: Benefits of Fitness Program Therapeutic Exercise to Include: Strength training, Endurance training, Body mechanics, Postural training, Flexibilty training, Neuromotor development, Passive ROM, Active ROM, Dynamic Lumbar Stabilization, Scapular Strength/Stabilization For the Purpose of:: To improve muscle performance and motor function Cryotherapy (ice pack, ice massage): Yes Thermo therapy (hot pack): Yes Thank you for the opportunity to evaluate your patient. For Medicare and Medicare HMO plans, please review the plan of care and approve it. It will need to be FAXED BACK to us at [phone] for Medicare purposes. For Medicare only, by signing this I certify the plan of care. Please let me know if there are questions or concerns regarding this plan of care. Physician Signature: Date: <Electronically signed by Keturah Felipe DPT> 04/23/22 1039 CC: CLINICAL SCIENCE LIAISON-C Sylvia Trevizo; DEMARCO Conti ELR Signed Sylvia Trevizo [facility] Work Phone: Start: 04-20-2022 End: 04-20-2022 Shoulder min 2 Views Procedure Note: See Note; NOTES: [facility] [address] [place] [address] Shoulder min 2 Views MR#: [id number] Acct: [id number] Name: MAKSIM OBRIEN Rep #: [id number] : 1945 M 77 From: Phi hobbs MD PCP: GISELE Al Status: DEP AMB Study: Shoulder min 2 Views Date of Exam: 04/20/22 Exam# [id number] Ordering Dr: Byron Conti STUDY: X-RAY - LEFT SHOULDER REASON FOR EXAM: Male, 77 years old. Fall on left shoulder TECHNIQUE: 4 view(s) of the shoulder. COMPARISON: None. FINDINGS: Normal glenohumeral articulation. Normal acromioclavicular joint. Normal acromion. Nondisplaced fracture of the distal lateral aspect of the left clavicle. Normal humeral head and visualized proximal humerus. The soft tissue structures are unremarkable. Normal visualized pulmonary apex. RAD/Shoulder min 2 Views IMPRESSION: Nondisplaced fracture of the distal lateral aspect of the left clavicle. Electronically Signed: Phi Graff MD at 12:45 EDT Reading Location ID and State: [facility] / [place] , Service support , CC: GISELE Trevizo; DEMARCO Conti Thread Spinner: Signed Sylvia Trevizo [facility] Work Phone: Start: 04-20-2022 End: 04-20-2022 Urgent Care Visit Report Procedure Note: See Note; NOTES: [facility] [address] [place] [address] [address] [place] [address] OFFICE VISIT Date of Service: 04/20/22 MR#: [id number] Acct: [id number] Name: MAKSIM OBRIEN Rep #: [id number] : 1945 Provider: DEMARCO Conti Age/Sex: 77/M Location: [facility] Status: Signed Intake Vital Signs 04/12/22 14:40 04/20/22 11:48 Height 6 ft 6 ft Weight: 189 lb 189 lb BMI 25.6 25.6 BP 150/89 H 170/80 H Blood Pressure Location Lt brachial Position Sitting Respiration 16 16 Pulse 90 72 Pulse Source Monitor Temp 97 F L 97.7 F L Temp Source Temporal Temporal Pulse Oximetry (%) 100 99 Oxygen Delivery Method room air Intake Visit Reasons: SHOULDER INJURY FU/XRAY Allergies No Known Allergies Allergy (Verified 04/20/22 11:40) Medications cyanocobalamin (vitamin B-12) 2,500 mcg sublingual tablet (Vitamin B-12) 2,000 mcg PO DAILY 04/12/22 [History Confirmed 04/20/22] levothyroxine 25 mcg tablet (Synthroid) 25 mcg PO DAILY 04/12/22 [History Confirmed 04/20/22] pantoprazole 40 mg tablet,delayed release 40 mg PO DAILY 04/12/22 [History Confirmed 04/20/22] PFSH Medical History (Updated 04/20/22 @ 13:28 by Byron PAL, PA) Hypothyroid Loss of consciousness Shoulder pain Surgical History (Updated 04/20/22 @ 11:41 by Kimberly Kemp, RN) H/O knee surgery History of appendectomy Hx of eye surgery Family History Other Cancer Social History Smoking Status: Never smoker HPI HPI Details: MAKSIM OBRIEN, is a 77 M who presents to the office today for complaint of ongoing left shoulder pain. Patient was evaluated at [facility] ED 9 days ago after falling and hitting his left shoulder and head. He was diagnosed with a concussion and left shoulder contusion. Patient today states that he has had no further headache, mental status change, near syncopal/syncopal episodes or vision change. He does however continue to have left shoulder pain with no improvement since his visit at the ED. He reports having pain with range of motion to the left shoulder however denies loss in range of motion or numbness/tingling. He has been using ibuprofen at night to help him sleep which does help. No other associated symptoms or alleviating/aggravating factors. ROS Const Constitutional: No other (6 system ROS completed with pertinent findings in the HPI otherwise normal.) Exam Const General: cooperative and healthy appearing [facility] Head: normocephalic and atraumatic Eyes General: appearance normal, both eyes and all related structures Pupils: PERRL Resp Effort Inspection: normal respiratory effort Cardio Rate: regular rate Skin General: no rashes or lesions noted Neuro General: patient alert and CN's II-XI intact bilaterally Extrem General: full ROM and capillary refill normal Other: Pain to palpation over the distal left clavicle with no obvious deformity upon palpation. Appropriate sensation to light touch as well as strength distally. Psych Appearance: grossly normal Mental Status: mental status grossly normal Coding Level of Care Code Off vis,new,level 4 Diagnoses Closed fracture of left clavicle S42.002A Assessment and Plan Assessment and Plan (1) Closed fracture of left clavicle: Status: Acute Plan: X-ray of the left clavicle/shoulder revealing a nondisplaced fracture of the distal left clavicle as read by the radiologist and confirmed myself. Patient refused to a shoulder sling. Patient advised limited activity of the left arm and shoulder and no lifting/pushing/pulling greater than 5 pounds with the same. Advised patient to follow-up with his PCP in 10 to 14 days for reevaluation or sooner should any worsening symptoms or new concerns. Advised of other symptomatic management techniques. Patient also referred for physical therapy as well. Patient verbalized understanding and agreement with all the above. Orders: Orders Shoulder min 2 Views Today S40.012A - Contusion of left shoulder, initial encounter Referrals PT Referral S40.012A - Contusion of left shoulder, initial encounter 04/20/22 1428 <Electronically signed by Byron PAL> Date Byron PAL Cosigner Signature: Date (if applicable) CC: Sylvia Trevizo CNP Work Phone: Start: 04-12-2022 End: 04-12-2022 Chest 1 View (Portable) Comments: See Note; NOTES: [facility] Imaging Services [address] [place] [address] Chest 1 View (Portable) MR#: [id number] Acct: [id number] Name: MAKSIM OBRIEN Rep #: [id number] : 1945 M 77 From: Emiliano Alexandre MD PCP: GISELE Al Status: REG ER Study: Chest 1 View (Portable) Date of Exam: 04/12/22 Exam# [id number] Ordering Dr: Carito Mosqueda STUDY: X-RAY CHEST REASON FOR EXAM: Male, 77 years old. chest wall pain TECHNIQUE: Single AP portable view of the chest. COMPARISON: None. FINDINGS: The lungs are clear and expanded. There is no demonstrated pleural abnormality. Normal size heart. Normal mediastinum and igor. Normal visualized pulmonary arteries. Normal visualized aortic arch and descending thoracic aorta. Normal visualized thoracic spine. Normal visualized ribs, clavicles, and shoulders. There is no demonstrated abnormality of the visualized soft tissue structures of the upper abdomen. RAD/Chest 1 View (Portable) IMPRESSION: Normal x-ray examination of the chest. Electronically Signed: Emiliano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 Treatment How to access health informa tion online Indication:BMI 27.0-27.9,adult Start:21-Oct-2019 Instruction Type:Patient Education How to access health informa tion online - Detail Indication:BMI 27.0-27.9,adult Start:21-Oct-2019 Instruction Type:Patient Education Patient Instructions Indication:BMI 27.0-27.9,adult Start:21-Oct-2019 Instruction Type:Provider Instructions for Treatment How to access health informa tion online Indication:Nonsmoker Start:07-Oct-2019 Instruction Type:Patient Education How to access health informa tion online - Detail Indication:Nonsmoker Start:07-Oct-2019 Instruction Type:Patient Education Patient Instructions Indication:Nonsmoker Start:07-Oct-2019 Instruction Type:Provider Instructions for Treatment How to access health informa tion online Indication:Abnormal glucose tolerance test Start:22-Apr-2018 Instruction Type:Patient Education How to access health informa tion online - Detail Indication:Abnormal glucose tolerance test Start:22-Apr-2018 Instruction Type:Patient Education Patient Instructions Indication:Obstructive sleep apnea, adult Start:22-Apr-2018 Instruction Type:Provider Instructions for Treatment Patient Instructions Indication:Abnormal cardiac function test Start:18-May-2016 Instruction Type:Provider Instructions for Treatment How to access health informa tion online Indication:Abnormal glucose tolerance test Start:18-Oct-2015 Instruction Type:Patient Education How to access health informa tion online - Detail Indication:Abnormal glucose tolerance test Start:18-Oct-2015 Instruction Type:Patient Education Patient Instructions Indication:Abnormal glucose tolerance test Start:18-Oct-2015 Instruction Type:Provider Instructions for Treatment Patient Instructions Indication:Depressive disorder Start:06-Jul-2013 Instruction Type:Provider Instructions for Treatment [facility] Work Phone: Instructions* Name Dates Details Patient Instructions Indication:Screening for prostate cancer Start:28-Dec-2020 Instruction Type:Provider Instructions for Treatment How to Access Health Informa tion Online using Patient Portal and [employer] Apps Indication:Nonsmoker Start:28-Dec-2020 Instruction Type:Patient Education How to access health informa tion online Indication:Nonsmoker Start:29-Jun-2020 Instruction Type:Patient Education How to access health informa tion online - Detail Indication:Nonsmoker Start:29-Jun-2020 Instruction Type:Patient Education Patient Instructions Indication:BMI 27.0-27.9,adult Start:29-Jun-2020 Instruction Type:Provider Instructions for Treatment How to access health informa tion online Indication:Nonsmoker Start:29-Mar-2020 Instruction Type:Patient Education How to access health informa tion online - Detail Indication:Nonsmoker Start:29-Mar-2020 Instruction Type:Patient Education Patient Instructions Indication:Nonsmoker Start:29-Mar-2020 Instruction Type:Provider Instructions for Treatment How to access health informa tion online Indication:Nonsmoker Start:23-Dec-2019 Instruction Type:Patient Education How to access health informa tion online - Detail Indication:Nonsmoker Start:23-Dec-2019 Instruction Type:Patient Education Patient Instructions Indication:BMI 27.0-27.9,adult Start:23-Dec-2019 Instruction Type:Provider Instructions for Treatment How to access health informa tion online Indication:Nonsmoker Start:23-Oct-2019 Instruction Type:Patient Education How to access health informa tion online - Detail Indication:Nonsmoker Start:23-Oct-2019 Instruction Type:Patient Education Patient Instructions Indication:Nonsmoker Start:23-Oct-2019 Instruction Type:Provider Instructions for Treatment How to access health informa tion online Indication:BMI 27.0-27.9,adult Start:21-Oct-2019 Instruction Type:Patient Education How to access health informa tion online - Detail Indication:BMI 27.0-27.9,adult Start:21-Oct-2019 Instruction Type:Patient Education Patient Instructions Indication:BMI 27.0-27.9,adult Start:21-Oct-2019 Instruction Type:Provider Instructions for Treatment How to access health informa tion online Indication:Nonsmoker Start:07-Oct-2019 Instruction Type:Patient Education How to access health informa tion online - Detail Indication:Nonsmoker Start:07-Oct-2019 Instruction Type:Patient Education Patient Instructions Indication:Nonsmoker Start:07-Oct-2019 Instruction Type:Provider Instructions for Treatment How to access health informa tion online Indication:Abnormal glucose tolerance test Start:22-Apr-2018 Instruction Type:Patient Education How to access health informa tion online - Detail Indication:Abnormal glucose tolerance test Start:22-Apr-2018 Instruction Type:Patient Education Patient Instructions Indication:Obstructive sleep apnea, adult Start:22-Apr-2018 Instruction Type:Provider Instructions for Treatment Patient Instructions Indication:Abnormal cardiac function test Start:18-May-2016 Instruction Type:Provider Instructions for Treatment How to access health informa tion online Indication:Abnormal glucose tolerance test Start:18-Oct-2015 Instruction Type:Patient Education How to access health informa tion online - Detail Indication:Abnormal glucose tolerance test Start:18-Oct-2015 Instruction Type:Patient Education Patient Instructions Indication:Abnormal glucose tolerance test Start:18-Oct-2015 Instruction Type:Provider Instructions for Treatment Patient Instructions Indication:Depressive disorder Start:06-Jul-2013 Instruction Type:Provider Instructions for Treatment [facility] Work Phone: Instructions* Name Dates Details Patient Instructions Indication:Screening for prostate cancer Start:28-Dec-2020 Instruction Type:Provider Instructions for Treatment How to Access Health Informa tion Online using Patient Portal and [employer] Apps Indication:Nonsmoker Start:28-Dec-2020 Instruction Type:Patient Education How to access health informa tion online Indication:Nonsmoker Start:29-Jun-2020 Instruction Type:Patient Education How to access health informa tion online - Detail Indication:Nonsmoker Start:29-Jun-2020 Instruction Type:Patient Education Patient Instructions Indication:BMI 27.0-27.9,adult Start:29-Jun-2020 Instruction Type:Provider Instructions for Treatment How to access health informa tion online Indication:Nonsmoker Start:29-Mar-2020 Instruction Type:Patient Education How to access health informa tion online - Detail Indication:Nonsmoker Start:29-Mar-2020 Instruction Type:Patient Education Patient Instructions Indication:Nonsmoker Start:29-Mar-2020 Instruction Type:Provider Instructions for Treatment How to access health informa tion online Indication:Nonsmoker Start:23-Dec-2019 Instruction Type:Patient Education How to access health informa tion online - Detail Indication:Nonsmoker Start:23-Dec-2019 Instruction Type:Patient Education Patient Instructions Indication:BMI 27.0-27.9,adult Start:23-Dec-2019 Instruction Type:Provider Instructions for Treatment How to access health informa tion online Indication:Nonsmoker Start:23-Oct-2019 Instruction Type:Patient Education How to access health informa tion online - Detail Indication:Nonsmoker Start:23-Oct-2019 Instruction Type:Patient Education Patient Instructions Indication:Nonsmoker Start:23-Oct-2019 Instruction Type:Provider Instructions for Treatment How to access health informa tion online Indication:BMI 27.0-27.9,adult Start:21-Oct-2019 Instruction Type:Patient Education How to access health informa tion online - Detail Indication:BMI 27.0-27.9,adult Start:21-Oct-2019 Instruction Type:Patient Education Patient Instructions Indication:BMI 27.0-27.9,adult Start:21-Oct-2019 Instruction Type:Provider Instructions for Treatment How to access health informa tion online Indication:Nonsmoker Start:07-Oct-2019 Instruction Type:Patient Education How to access health informa tion online - Detail Indication:Nonsmoker Start:07-Oct-2019 Instruction Type:Patient Education Patient Instructions Indication:Nonsmoker Start:07-Oct-2019 Instruction Type:Provider Instructions for Treatment How to access health informa tion online Indication:Abnormal glucose tolerance test Start:22-Apr-2018 Instruction Type:Patient Education How to access health informa tion online - Detail Indication:Abnormal glucose tolerance test Start:22-Apr-2018 Instruction Type:Patient Education Patient Instructions Indication:Obstructive sleep apnea, adult Start:22-Apr-2018 Instruction Type:Provider Instructions for Treatment Patient Instructions Indication:Abnormal cardiac function test Start:18-May-2016 Instruction Type:Provider Instructions for Treatment How to access health informa tion online Indication:Abnormal glucose tolerance test Start:18-Oct-2015 Instruction Type:Patient Education How to access health informa tion online - Detail Indication:Abnormal glucose tolerance test Start:18-Oct-2015 Instruction Type:Patient Education Patient Instructions Indication:Abnormal glucose tolerance test Start:18-Oct-2015 Instruction Type:Provider Instructions for Treatment Patient Instructions Indication:Depressive disorder Start:06-Jul-2013 Instruction Type:Provider Instructions for Treatment [facility]; [facility] Work Phone: Instructions* Name Dates Details Patient Instructions Indication:BMI 27.0-27.9,adult Start:30-Jun-2021 Instruction Type:Provider Instructions for Treatment How to Access Health Informa tion Online using Patient Portal and [employer] Apps Indication:BMI 27.0-27.9,adult Start:30-Jun-2021 Instruction Type:Patient Education Patient Instructions Indication:Screening for prostate cancer Start:28-Dec-2020 Instruction Type:Provider Instructions for Treatment How to Access Health Informa tion Online using Patient Portal and [employer] Apps Indication:Nonsmoker Start:28-Dec-2020 Instruction Type:Patient Education How to access health informa tion online Indication:Nonsmoker Start:29-Jun-2020 Instruction Type:Patient Education How to access health informa tion online - Detail Indication:Nonsmoker Start:29-Jun-2020 Instruction Type:Patient Education Patient Instructions Indication:BMI 27.0-27.9,adult Start:29-Jun-2020 Instruction Type:Provider Instructions for Treatment How to access health informa tion online Indication:Nonsmoker Start:29-Mar-2020 Instruction Type:Patient Education How to access health informa tion online - Detail Indication:Nonsmoker Start:29-Mar-2020 Instruction Type:Patient Education Patient Instructions Indication:Nonsmoker Start:29-Mar-2020 Instruction Type:Provider Instructions for Treatment How to access health informa tion online Indication:Nonsmoker Start:23-Dec-2019 Instruction Type:Patient Education How to access health informa tion online - Detail Indication:Nonsmoker Start:23-Dec-2019 Instruction Type:Patient Education Patient Instructions Indication:BMI 27.0-27.9,adult Start:23-Dec-2019 Instruction Type:Provider Instructions for Treatment How to access health informa tion online Indication:Nonsmoker Start:23-Oct-2019 Instruction Type:Patient Education How to access health informa tion online - Detail Indication:Nonsmoker Start:23-Oct-2019 Instruction Type:Patient Education Patient Instructions Indication:Nonsmoker Start:23-Oct-2019 Instruction Type:Provider Instructions for Treatment How to access health informa tion online Indication:BMI 27.0-27.9,adult Start:21-Oct-2019 Instruction Type:Patient Education How to access health informa tion online - Detail Indication:BMI 27.0-27.9,adult Start:21-Oct-2019 Instruction Type:Patient Education Patient Instructions Indication:BMI 27.0-27.9,adult Start:21-Oct-2019 Instruction Type:Provider Instructions for Treatment How to access health informa tion online Indication:Nonsmoker Start:07-Oct-2019 Instruction Type:Patient Education How to access health informa tion online - Detail Indication:Nonsmoker Start:07-Oct-2019 Instruction Type:Patient Education Patient Instructions Indication:Nonsmoker Start:07-Oct-2019 Instruction Type:Provider Instructions for Treatment How to access health informa tion online Indication:Abnormal glucose tolerance test Start:22-Apr-2018 Instruction Type:Patient Education How to access health informa tion online - Detail Indication:Abnormal glucose tolerance test Start:22-Apr-2018 Instruction Type:Patient Education Patient Instructions Indication:Obstructive sleep apnea, adult Start:22-Apr-2018 Instruction Type:Provider Instructions for Treatment Patient Instructions Indication:Abnormal cardiac function test Start:18-May-2016 Instruction Type:Provider Instructions for Treatment How to access health informa tion online Indication:Abnormal glucose tolerance test Start:18-Oct-2015 Instruction Type:Patient Education How to access health informa tion online - Detail Indication:Abnormal glucose tolerance test Start:18-Oct-2015 Instruction Type:Patient Education Patient Instructions Indication:Abnormal glucose tolerance test Start:18-Oct-2015 Instruction Type:Provider Instructions for Treatment Patient Instructions Indication:Depressive disorder Start:06-Jul-2013 Instruction Type:Provider Instructions for Treatment [facility]; [facility] Work Phone: Instructions* Name Dates Details Patient Instructions Indication:BMI 28.0-28.9,adult Start:05-Dec-2021 Instruction Type:Provider Instructions for Treatment How to Access Health Informa tion Online using Patient Portal and [employer] Apps Indication:BMI 28.0-28.9,adult Start:05-Dec-2021 Instruction Type:Patient Education Patient Instructions Indication:BMI 28.0-28.9,adult Start:27-Nov-2021 Instruction Type:Provider Instructions for Treatment How to Access Health Informa tion Online using Patient Portal and [employer] Apps Indication:BMI 28.0-28.9,adult Start:27-Nov-2021 Instruction Type:Patient Education Patient Instructions Indication:BMI 27.0-27.9,adult Start:30-Jun-2021 Instruction Type:Provider Instructions for Treatment How to Access Health Informa tion Online using Patient Portal and [employer] Apps Indication:BMI 27.0-27.9,adult Start:30-Jun-2021 Instruction Type:Patient Education Patient Instructions Indication:Screening for prostate cancer Start:28-Dec-2020 Instruction Type:Provider Instructions for Treatment How to Access Health Informa tion Online using Patient Portal and [employer] Apps Indication:Nonsmoker Start:28-Dec-2020 Instruction Type:Patient Education How to access health informa tion online Indication:Nonsmoker Start:29-Jun-2020 Instruction Type:Patient Education How to access health informa tion online - Detail Indication:Nonsmoker Start:29-Jun-2020 Instruction Type:Patient Education Patient Instructions Indication:BMI 27.0-27.9,adult Start:29-Jun-2020 Instruction Type:Provider Instructions for Treatment How to access health informa tion online Indication:Nonsmoker Start:29-Mar-2020 Instruction Type:Patient Education How to access health informa tion online - Detail Indication:Nonsmoker Start:29-Mar-2020 Instruction Type:Patient Education Patient Instructions Indication:Nonsmoker Start:29-Mar-2020 Instruction Type:Provider Instructions for Treatment How to access health informa tion online Indication:Nonsmoker Start:23-Dec-2019 Instruction Type:Patient Education How to access health informa tion online - Detail Indication:Nonsmoker Start:23-Dec-2019 Instruction Type:Patient Education Patient Instructions Indication:BMI 27.0-27.9,adult Start:23-Dec-2019 Instruction Type:Provider Instructions for Treatment How to access health informa tion online Indication:Nonsmoker Start:23-Oct-2019 Instruction Type:Patient Education How to access health informa tion online - Detail Indication:Nonsmoker Start:23-Oct-2019 Instruction Type:Patient Education Patient Instructions Indication:Nonsmoker Start:23-Oct-2019 Instruction Type:Provider Instructions for Treatment How to access health informa tion online Indication:BMI 27.0-27.9,adult Start:21-Oct-2019 Instruction Type:Patient Education How to access health informa tion online - Detail Indication:BMI 27.0-27.9,adult Start:21-Oct-2019 Instruction Type:Patient Education Patient Instructions Indication:BMI 27.0-27.9,adult Start:21-Oct-2019 Instruction Type:Provider Instructions for Treatment How to access health informa tion online Indication:Nonsmoker Start:07-Oct-2019 Instruction Type:Patient Education How to access health informa tion online - Detail Indication:Nonsmoker Start:07-Oct-2019 Instruction Type:Patient Education Patient Instructions Indication:Nonsmoker Start:07-Oct-2019 Instruction Type:Provider Instructions for Treatment How to access health informa tion online Indication:Abnormal glucose tolerance test Start:22-Apr-2018 Instruction Type:Patient Education How to access health informa tion online - Detail Indication:Abnormal glucose tolerance test Start:22-Apr-2018 Instruction Type:Patient Education Patient Instructions Indication:Obstructive sleep apnea, adult Start:22-Apr-2018 Instruction Type:Provider Instructions for Treatment Patient Instructions Indication:Abnormal cardiac function test Start:18-May-2016 Instruction Type:Provider Instructions for Treatment How to access health informa tion online Indication:Abnormal glucose tolerance test Start:18-Oct-2015 Instruction Type:Patient Education How to access health informa tion online - Detail Indication:Abnormal glucose tolerance test Start:18-Oct-2015 Instruction Type:Patient Education Patient Instructions Indication:Abnormal glucose tolerance test Start:18-Oct-2015 Instruction Type:Provider Instructions for Treatment Patient Instructions Indication:Depressive disorder Start:06-Jul-2013 Instruction Type:Provider Instructions for Treatment [facility] Work Phone: Instructions* Name Dates Details Patient Instructions Indication:BMI 28.0-28.9,adult Start:05-Dec-2021 Instruction Type:Provider Instructions for Treatment How to Access Health Informa tion Online using Patient Portal and [employer] Apps Indication:BMI 28.0-28.9,adult Start:05-Dec-2021 Instruction Type:Patient Education Patient Instructions Indication:BMI 28.0-28.9,adult Start:27-Nov-2021 Instruction Type:Provider Instructions for Treatment How to Access Health Informa tion Online using Patient Portal and [employer] Apps Indication:BMI 28.0-28.9,adult Start:27-Nov-2021 Instruction Type:Patient Education Patient Instructions Indication:BMI 27.0-27.9,adult Start:30-Jun-2021 Instruction Type:Provider Instructions for Treatment How to Access Health Informa tion Online using Patient Portal and [employer] Apps Indication:BMI 27.0-27.9,adult Start:30-Jun-2021 Instruction Type:Patient Education Patient Instructions Indication:Screening for prostate cancer Start:28-Dec-2020 Instruction Type:Provider Instructions for Treatment How to Access Health Informa tion Online using Patient Portal and [employer] Apps Indication:Nonsmoker Start:28-Dec-2020 Instruction Type:Patient Education How to access health informa tion online Indication:Nonsmoker Start:29-Jun-2020 Instruction Type:Patient Education How to access health informa tion online - Detail Indication:Nonsmoker Start:29-Jun-2020 Instruction Type:Patient Education Patient Instructions Indication:BMI 27.0-27.9,adult Start:29-Jun-2020 Instruction Type:Provider Instructions for Treatment How to access health informa tion online Indication:Nonsmoker Start:29-Mar-2020 Instruction Type:Patient Education How to access health informa tion online - Detail Indication:Nonsmoker Start:29-Mar-2020 Instruction Type:Patient Education Patient Instructions Indication:Nonsmoker Start:29-Mar-2020 Instruction Type:Provider Instructions for Treatment How to access health informa tion online Indication:Nonsmoker Start:23-Dec-2019 Instruction Type:Patient Education How to access health informa tion online - Detail Indication:Nonsmoker Start:23-Dec-2019 Instruction Type:Patient Education Patient Instructions Indication:BMI 27.0-27.9,adult Start:23-Dec-2019 Instruction Type:Provider Instructions for Treatment How to access health informa tion online Indication:Nonsmoker Start:23-Oct-2019 Instruction Type:Patient Education How to access health informa tion online - Detail Indication:Nonsmoker Start:23-Oct-2019 Instruction Type:Patient Education Patient Instructions Indication:Nonsmoker Start:23-Oct-2019 Instruction Type:Provider Instructions for Treatment How to access health informa tion online Indication:BMI 27.0-27.9,adult Start:21-Oct-2019 Instruction Type:Patient Education How to access health informa tion online - Detail Indication:BMI 27.0-27.9,adult Start:21-Oct-2019 Instruction Type:Patient Education Patient Instructions Indication:BMI 27.0-27.9,adult Start:21-Oct-2019 Instruction Type:Provider Instructions for Treatment How to access health informa tion online Indication:Nonsmoker Start:07-Oct-2019 Instruction Type:Patient Education How to access health informa tion online - Detail Indication:Nonsmoker Start:07-Oct-2019 Instruction Type:Patient Education Patient Instructions Indication:Nonsmoker Start:07-Oct-2019 Instruction Type:Provider Instructions for Treatment How to access health informa tion online Indication:Abnormal glucose tolerance test Start:22-Apr-2018 Instruction Type:Patient Education How to access health informa tion online - Detail Indication:Abnormal glucose tolerance test Start:22-Apr-2018 Instruction Type:Patient Education Patient Instructions Indication:Obstructive sleep apnea, adult Start:22-Apr-2018 Instruction Type:Provider Instructions for Treatment Patient Instructions Indication:Abnormal cardiac function test Start:18-May-2016 Instruction Type:Provider Instructions for Treatment How to access health informa tion online Indication:Abnormal glucose tolerance test Start:18-Oct-2015 Instruction Type:Patient Education How to access health informa tion online - Detail Indication:Abnormal glucose tolerance test Start:18-Oct-2015 Instruction Type:Patient Education Patient Instructions Indication:Abnormal glucose tolerance test Start:18-Oct-2015 Instruction Type:Provider Instructions for Treatment Patient Instructions Indication:Depressive disorder Start:06-Jul-2013 Instruction Type:Provider Instructions for Treatment [facility]; [facility] Work Phone: Instructions* Name Dates Details Patient Instructions Indication:BMI 28.0-28.9,adult Start:05-Dec-2021 Instruction Type:Provider Instructions for Treatment How to Access Health Informa tion Online using Patient Portal and [employer]rd [employer] Apps Indication:BMI 28.0-28.9,adult Start:05-Dec-2021 Instruction Type:Patient Education Patient Instructions Indication:BMI 28.0-28.9,adult Start:27-Nov-2021 Instruction Type:Provider Instructions for Treatment How to Access Health Informa tion Online using Patient Portal and [employer]rd [employer] Apps Indication:BMI 28.0-28.9,adult Start:27-Nov-2021 Instruction Type:Patient Education Patient Instructions Indication:BMI 27.0-27.9,adult Start:30-Jun-2021 Instruction Type:Provider Instructions for Treatment How to Access Health Informa tion Online using Patient Portal and [employer]rd [employer] Apps Indication:BMI 27.0-27.9,adult Start:30-Jun-2021 Instruction Type:Patient Education Patient Instructions Indication:Screening for prostate cancer Start:28-Dec-2020 Instruction Type:Provider Instructions for Treatment How to Access Health Informa tion Online using Patient Portal and [employer]rd [employer] Apps Indication:Nonsmoker Start:28-Dec-2020 Instruction Type:Patient Education How to access health informa tion online Indication:Nonsmoker Start:29-Jun-2020 Instruction Type:Patient Education How to access health informa tion online - Detail Indication:Nonsmoker Start:29-Jun-2020 Instruction Type:Patient Education Patient Instructions Indication:BMI 27.0-27.9,adult Start:29-Jun-2020 Instruction Type:Provider Instructions for Treatment How to access health informa tion online Indication:Nonsmoker Start:29-Mar-2020 Instruction Type:Patient Education How to access health informa tion online - Detail Indication:Nonsmoker Start:29-Mar-2020 Instruction Type:Patient Education Patient Instructions Indication:Nonsmoker Start:29-Mar-2020 Instruction Type:Provider Instructions for Treatment How to access health informa tion online Indication:Nonsmoker Start:23-Dec-2019 Instruction Type:Patient Education How to access health informa tion online - Detail Indication:Nonsmoker Start:23-Dec-2019 Instruction Type:Patient Education Patient Instructions Indication:BMI 27.0-27.9,adult Start:23-Dec-2019 Instruction Type:Provider Instructions for Treatment How to access health informa tion online Indication:Nonsmoker Start:23-Oct-2019 Instruction Type:Patient Education How to access health informa tion online - Detail Indication:Nonsmoker Start:23-Oct-2019 Instruction Type:Patient Education Patient Instructions Indication:Nonsmoker Start:23-Oct-2019 Instruction Type:Provider Instructions for Treatment How to access health informa tion online Indication:BMI 27.0-27.9,adult Start:21-Oct-2019 Instruction Type:Patient Education How to access health informa tion online - Detail Indication:BMI 27.0-27.9,adult Start:21-Oct-2019 Instruction Type:Patient Education Patient Instructions Indication:BMI 27.0-27.9,adult Start:21-Oct-2019 Instruction Type:Provider Instructions for Treatment How to access health informa tion online Indication:Nonsmoker Start:07-Oct-2019 Instruction Type:Patient Education How to access health informa tion online - Detail Indication:Nonsmoker Start:07-Oct-2019 Instruction Type:Patient Education Patient Instructions Indication:Nonsmoker Start:07-Oct-2019 Instruction Type:Provider Instructions for Treatment How to access health informa tion online Indication:Abnormal glucose tolerance test Start:22-Apr-2018 Instruction Type:Patient Education How to access health informa tion online - Detail Indication:Abnormal glucose tolerance test Start:22-Apr-2018 Instruction Type:Patient Education Patient Instructions Indication:Obstructive sleep apnea, adult Start:22-Apr-2018 Instruction Type:Provider Instructions for Treatment Patient Instructions Indication:Abnormal cardiac function test Start:18-May-2016 Instruction Type:Provider Instructions for Treatment How to access health informa tion online Indication:Abnormal glucose tolerance test Start:18-Oct-2015 Instruction Type:Patient Education How to access health informa tion online - Detail Indication:Abnormal glucose tolerance test Start:18-Oct-2015 Instruction Type:Patient Education Patient Instructions Indication:Abnormal glucose tolerance test Start:18-Oct-2015 Instruction Type:Provider Instructions for Treatment Patient Instructions Indication:Depressive disorder Start:06-Jul-2013 Instruction Type:Provider Instructions for Treatment [facility]; [facility] Work Phone: Instructions* Name Dates Details Patient Instructions Indication:BMI 27.0-27.9,adult Start:08-May-2022 Instruction Type:Provider Instructions for Treatment How to Access Health Informa tion Online using Patient Portal and [employer]rd [employer] Apps Indication:BMI 27.0-27.9,adult Start:08-May-2022 Instruction Type:Patient Education Patient Instructions Indication:BMI 28.0-28.9,adult Start:05-Dec-2021 Instruction Type:Provider Instructions for Treatment How to Access Health Informa tion Online using Patient Portal and [employer]rd [employer] Apps Indication:BMI 28.0-28.9,adult Start:05-Dec-2021 Instruction Type:Patient Education Patient Instructions Indication:BMI 28.0-28.9,adult Start:27-Nov-2021 Instruction Type:Provider Instructions for Treatment How to Access Health Informa tion Online using Patient Portal and [employer]rd [employer] Apps Indication:BMI 28.0-28.9,adult Start:27-Nov-2021 Instruction Type:Patient Education Patient Instructions Indication:BMI 27.0-27.9,adult Start:30-Jun-2021 Instruction Type:Provider Instructions for Treatment How to Access Health Informa tion Online using Patient Portal and [employer]rd [employer] Apps Indication:BMI 27.0-27.9,adult Start:30-Jun-2021 Instruction Type:Patient Education Patient Instructions Indication:Screening for prostate cancer Start:28-Dec-2020 Instruction Type:Provider Instructions for Treatment How to Access Health Informa tion Online using Patient Portal and [employer] Apps Indication:Nonsmoker Start:28-Dec-2020 Instruction Type:Patient Education How to access health informa tion online Indication:Nonsmoker Start:29-Jun-2020 Instruction Type:Patient Education How to access health informa tion online - Detail Indication:Nonsmoker Start:29-Jun-2020 Instruction Type:Patient Education Patient Instructions Indication:BMI 27.0-27.9,adult Start:29-Jun-2020 Instruction Type:Provider Instructions for Treatment How to access health informa tion online Indication:Nonsmoker Start:29-Mar-2020 Instruction Type:Patient Education How to access health informa tion online - Detail Indication:Nonsmoker Start:29-Mar-2020 Instruction Type:Patient Education Patient Instructions Indication:Nonsmoker Start:29-Mar-2020 Instruction Type:Provider Instructions for Treatment How to access health informa tion online Indication:Nonsmoker Start:23-Dec-2019 Instruction Type:Patient Education How to access health informa tion online - Detail Indication:Nonsmoker Start:23-Dec-2019 Instruction Type:Patient Education Patient Instructions Indication:BMI 27.0-27.9,adult Start:23-Dec-2019 Instruction Type:Provider Instructions for Treatment How to access health informa tion online Indication:Nonsmoker Start:23-Oct-2019 Instruction Type:Patient Education How to access health informa tion online - Detail Indication:Nonsmoker Start:23-Oct-2019 Instruction Type:Patient Education Patient Instructions Indication:Nonsmoker Start:23-Oct-2019 Instruction Type:Provider Instructions for Treatment How to access health informa tion online Indication:BMI 27.0-27.9,adult Start:21-Oct-2019 Instruction Type:Patient Education How to access health informa tion online - Detail Indication:BMI 27.0-27.9,adult Start:21-Oct-2019 Instruction Type:Patient Education Patient Instructions Indication:BMI 27.0-27.9,adult Start:21-Oct-2019 Instruction Type:Provider Instructions for Treatment How to access health informa tion online Indication:Nonsmoker Start:07-Oct-2019 Instruction Type:Patient Education How to access health informa tion online - Detail Indication:Nonsmoker Start:07-Oct-2019 Instruction Type:Patient Education Patient Instructions Indication:Nonsmoker Start:07-Oct-2019 Instruction Type:Provider Instructions for Treatment How to access health informa tion online Indication:Abnormal glucose tolerance test Start:22-Apr-2018 Instruction Type:Patient Education How to access health informa tion online - Detail Indication:Abnormal glucose tolerance test Start:22-Apr-2018 Instruction Type:Patient Education Patient Instructions Indication:Obstructive sleep apnea, adult Start:22-Apr-2018 Instruction Type:Provider Instructions for Treatment Patient Instructions Indication:Abnormal cardiac function test Start:18-May-2016 Instruction Type:Provider Instructions for Treatment How to access health informa tion online Indication:Abnormal glucose tolerance test Start:18-Oct-2015 Instruction Type:Patient Education How to access health informa tion online - Detail Indication:Abnormal glucose tolerance test Start:18-Oct-2015 Instruction Type:Patient Education Patient Instructions Indication:Abnormal glucose tolerance test Start:18-Oct-2015 Instruction Type:Provider Instructions for Treatment Patient Instructions Indication:Depressive disorder Start:06-Jul-2013 Instruction Type:Provider Instructions for Treatment [facility]; [facility] Work Phone: Instructions* Name Dates Details Patient Instructions Indication:Hypertension Start:05-Jun-2022 Instruction Type:Provider Instructions for Treatment How to Access Health Informa tion Online using Patient Portal and [employer]rd [employer] Apps Indication:Hypertension Start:05-Jun-2022 Instruction Type:Patient Education Patient Instructions Indication:BMI 27.0-27.9,adult Start:08-May-2022 Instruction Type:Provider Instructions for Treatment How to Access Health Informa tion Online using Patient Portal and [employer]rd [employer] Apps Indication:BMI 27.0-27.9,adult Start:08-May-2022 Instruction Type:Patient Education Patient Instructions Indication:BMI 28.0-28.9,adult Start:05-Dec-2021 Instruction Type:Provider Instructions for Treatment How to Access Health Informa tion Online using Patient Portal and [employer]rd [employer] Apps Indication:BMI 28.0-28.9,adult Start:05-Dec-2021 Instruction Type:Patient Education Patient Instructions Indication:BMI 28.0-28.9,adult Start:27-Nov-2021 Instruction Type:Provider Instructions for Treatment How to Access Health Informa tion Online using Patient Portal and [employer]rd [employer] Apps Indication:BMI 28.0-28.9,adult Start:27-Nov-2021 Instruction Type:Patient Education Patient Instructions Indication:BMI 27.0-27.9,adult Start:30-Jun-2021 Instruction Type:Provider Instructions for Treatment How to Access Health Informa tion Online using Patient Portal and [employer]rd [employer] Apps Indication:BMI 27.0-27.9,adult Start:30-Jun-2021 Instruction Type:Patient Education Patient Instructions Indication:Screening for prostate cancer Start:28-Dec-2020 Instruction Type:Provider Instructions for Treatment How to Access Health Informa tion Online using Patient Portal and [employer]rd [employer] Apps Indication:Nonsmoker Start:28-Dec-2020 Instruction Type:Patient Education How to access health informa tion online Indication:Nonsmoker Start:29-Jun-2020 Instruction Type:Patient Education How to access health informa tion online - Detail Indication:Nonsmoker Start:29-Jun-2020 Instruction Type:Patient Education Patient Instructions Indication:BMI 27.0-27.9,adult Start:29-Jun-2020 Instruction Type:Provider Instructions for Treatment How to access health informa tion online Indication:Nonsmoker Start:29-Mar-2020 Instruction Type:Patient Education How to access health informa tion online - Detail Indication:Nonsmoker Start:29-Mar-2020 Instruction Type:Patient Education Patient Instructions Indication:Nonsmoker Start:29-Mar-2020 Instruction Type:Provider Instructions for Treatment How to access health informa tion online Indication:Nonsmoker Start:23-Dec-2019 Instruction Type:Patient Education How to access health informa tion online - Detail Indication:Nonsmoker Start:23-Dec-2019 Instruction Type:Patient Education Patient Instructions Indication:BMI 27.0-27.9,adult Start:23-Dec-2019 Instruction Type:Provider Instructions for Treatment How to access health informa tion online Indication:Nonsmoker Start:23-Oct-2019 Instruction Type:Patient Education How to access health informa tion online - Detail Indication:Nonsmoker Start:23-Oct-2019 Instruction Type:Patient Education Patient Instructions Indication:Nonsmoker Start:23-Oct-2019 Instruction Type:Provider Instructions for Treatment How to access health informa tion online Indication:BMI 27.0-27.9,adult Start:21-Oct-2019 Instruction Type:Patient Education How to access health informa tion online - Detail Indication:BMI 27.0-27.9,adult Start:21-Oct-2019 Instruction Type:Patient Education Patient Instructions Indication:BMI 27.0-27.9,adult Start:21-Oct-2019 Instruction Type:Provider Instructions for Treatment How to access health informa tion online Indication:Nonsmoker Start:07-Oct-2019 Instruction Type:Patient Education How to access health informa tion online - Detail Indication:Nonsmoker Start:07-Oct-2019 Instruction Type:Patient Education Patient Instructions Indication:Nonsmoker Start:07-Oct-2019 Instruction Type:Provider Instructions for Treatment How to access health informa tion online Indication:Abnormal glucose tolerance test Start:22-Apr-2018 Instruction Type:Patient Education How to access health informa tion online - Detail Indication:Abnormal glucose tolerance test Start:22-Apr-2018 Instruction Type:Patient Education Patient Instructions Indication:Obstructive sleep apnea, adult Start:22-Apr-2018 Instruction Type:Provider Instructions for Treatment Patient Instructions Indication:Abnormal cardiac function test Start:18-May-2016 Instruction Type:Provider Instructions for Treatment How to access health informa tion online Indication:Abnormal glucose tolerance test Start:18-Oct-2015 Instruction Type:Patient Education How to access health informa tion online - Detail Indication:Abnormal glucose tolerance test Start:18-Oct-2015 Instruction Type:Patient Education Patient Instructions Indication:Abnormal glucose tolerance test Start:18-Oct-2015 Instruction Type:Provider Instructions for Treatment Patient Instructions Indication:Depressive disorder Start:06-Jul-2013 Instruction Type:Provider Instructions for Treatment [facility]; [facility] Work Phone: Instructions* Name Dates Details Patient Instructions Indication:Hypertension Start:05-Jun-2022 Instruction Type:Provider Instructions for Treatment How to Access Health Informa tion Online using Patient Portal and [employer]rd [employer] Apps Indication:Hypertension Start:05-Jun-2022 Instruction Type:Patient Education Patient Instructions Indication:BMI 27.0-27.9,adult Start:08-May-2022 Instruction Type:Provider Instructions for Treatment How to Access Health Informa tion Online using Patient Portal and [employer]rd [employer] Apps Indication:BMI 27.0-27.9,adult Start:08-May-2022 Instruction Type:Patient Education Patient Instructions Indication:BMI 28.0-28.9,adult Start:05-Dec-2021 Instruction Type:Provider Instructions for Treatment How to Access Health Informa tion Online using Patient Portal and [employer]rd [employer] Apps Indication:BMI 28.0-28.9,adult Start:05-Dec-2021 Instruction Type:Patient Education Patient Instructions Indication:BMI 28.0-28.9,adult Start:27-Nov-2021 Instruction Type:Provider Instructions for Treatment How to Access Health Informa tion Online using Patient Portal and [employer]rd [employer] Apps Indication:BMI 28.0-28.9,adult Start:27-Nov-2021 Instruction Type:Patient Education Patient Instructions Indication:BMI 27.0-27.9,adult Start:30-Jun-2021 Instruction Type:Provider Instructions for Treatment How to Access Health Informa tion Online using Patient Portal and [employer]rd [employer] Apps Indication:BMI 27.0-27.9,adult Start:30-Jun-2021 Instruction Type:Patient Education Patient Instructions Indication:Screening for prostate cancer Start:28-Dec-2020 Instruction Type:Provider Instructions for Treatment How to Access Health Informa tion Online using Patient Portal and [employer] Apps Indication:Nonsmoker Start:28-Dec-2020 Instruction Type:Patient Education How to access health informa tion online Indication:Nonsmoker Start:29-Jun-2020 Instruction Type:Patient Education How to access health informa tion online - Detail Indication:Nonsmoker Start:29-Jun-2020 Instruction Type:Patient Education Patient Instructions Indication:BMI 27.0-27.9,adult Start:29-Jun-2020 Instruction Type:Provider Instructions for Treatment How to access health informa tion online Indication:Nonsmoker Start:29-Mar-2020 Instruction Type:Patient Education How to access health informa tion online - Detail Indication:Nonsmoker Start:29-Mar-2020 Instruction Type:Patient Education Patient Instructions Indication:Nonsmoker Start:29-Mar-2020 Instruction Type:Provider Instructions for Treatment How to access health informa tion online Indication:Nonsmoker Start:23-Dec-2019 Instruction Type:Patient Education How to access health informa tion online - Detail Indication:Nonsmoker Start:23-Dec-2019 Instruction Type:Patient Education Patient Instructions Indication:BMI 27.0-27.9,adult Start:23-Dec-2019 Instruction Type:Provider Instructions for Treatment How to access health informa tion online Indication:Nonsmoker Start:23-Oct-2019 Instruction Type:Patient Education How to access health informa tion online - Detail Indication:Nonsmoker Start:23-Oct-2019 Instruction Type:Patient Education Patient Instructions Indication:Nonsmoker Start:23-Oct-2019 Instruction Type:Provider Instructions for Treatment How to access health informa tion online Indication:BMI 27.0-27.9,adult Start:21-Oct-2019 Instruction Type:Patient Education How to access health informa tion online - Detail Indication:BMI 27.0-27.9,adult Start:21-Oct-2019 Instruction Type:Patient Education Patient Instructions Indication:BMI 27.0-27.9,adult Start:21-Oct-2019 Instruction Type:Provider Instructions for Treatment How to access health informa tion online Indication:Nonsmoker Start:07-Oct-2019 Instruction Type:Patient Education How to access health informa tion online - Detail Indication:Nonsmoker Start:07-Oct-2019 Instruction Type:Patient Education Patient Instructions Indication:Nonsmoker Start:07-Oct-2019 Instruction Type:Provider Instructions for Treatment How to access health informa tion online Indication:Abnormal glucose tolerance test Start:22-Apr-2018 Instruction Type:Patient Education How to access health informa tion online - Detail Indication:Abnormal glucose tolerance test Start:22-Apr-2018 Instruction Type:Patient Education Patient Instructions Indication:Obstructive sleep apnea, adult Start:22-Apr-2018 Instruction Type:Provider Instructions for Treatment Patient Instructions Indication:Abnormal cardiac function test Start:18-May-2016 Instruction Type:Provider Instructions for Treatment How to access health informa tion online Indication:Abnormal glucose tolerance test Start:18-Oct-2015 Instruction Type:Patient Education How to access health informa tion online - Detail Indication:Abnormal glucose tolerance test Start:18-Oct-2015 Instruction Type:Patient Education Patient Instructions Indication:Abnormal glucose tolerance test Start:18-Oct-2015 Instruction Type:Provider Instructions for Treatment Patient Instructions Indication:Depressive disorder Start:06-Jul-2013 Instruction Type:Provider Instructions for Treatment [facility]; [facility] Work Phone: Instructions* Name Dates Details Patient Instructions Indication:Hypertension Start:05-Jun-2022 Instruction Type:Provider Instructions for Treatment How to Access Health Informa tion Online using Patient Portal and [employer]rd [employer] Apps Indication:Hypertension Start:05-Jun-2022 Instruction Type:Patient Education Patient Instructions Indication:BMI 27.0-27.9,adult Start:08-May-2022 Instruction Type:Provider Instructions for Treatment How to Access Health Informa tion Online using Patient Portal and [employer]rd [employer] Apps Indication:BMI 27.0-27.9,adult Start:08-May-2022 Instruction Type:Patient Education Patient Instructions Indication:BMI 28.0-28.9,adult Start:05-Dec-2021 Instruction Type:Provider Instructions for Treatment How to Access Health Informa tion Online using Patient Portal and [employer]rd [employer] Apps Indication:BMI 28.0-28.9,adult Start:05-Dec-2021 Instruction Type:Patient Education Patient Instructions Indication:BMI 28.0-28.9,adult Start:27-Nov-2021 Instruction Type:Provider Instructions for Treatment How to Access Health Informa tion Online using Patient Portal and [employer]rd [employer] Apps Indication:BMI 28.0-28.9,adult Start:27-Nov-2021 Instruction Type:Patient Education Patient Instructions Indication:BMI 27.0-27.9,adult Start:30-Jun-2021 Instruction Type:Provider Instructions for Treatment How to Access Health Informa tion Online using Patient Portal and [employer]rd [employer] Apps Indication:BMI 27.0-27.9,adult Start:30-Jun-2021 Instruction Type:Patient Education Patient Instructions Indication:Screening for prostate cancer Start:28-Dec-2020 Instruction Type:Provider Instructions for Treatment How to Access Health Informa tion Online using Patient Portal and [employer] Apps Indication:Nonsmoker Start:28-Dec-2020 Instruction Type:Patient Education How to access health informa tion online Indication:Nonsmoker Start:29-Jun-2020 Instruction Type:Patient Education How to access health informa tion online - Detail Indication:Nonsmoker Start:29-Jun-2020 Instruction Type:Patient Education Patient Instructions Indication:BMI 27.0-27.9,adult Start:29-Jun-2020 Instruction Type:Provider Instructions for Treatment How to access health informa tion online Indication:Nonsmoker Start:29-Mar-2020 Instruction Type:Patient Education How to access health informa tion online - Detail Indication:Nonsmoker Start:29-Mar-2020 Instruction Type:Patient Education Patient Instructions Indication:Nonsmoker Start:29-Mar-2020 Instruction Type:Provider Instructions for Treatment How to access health informa tion online Indication:Nonsmoker Start:23-Dec-2019 Instruction Type:Patient Education How to access health informa tion online - Detail Indication:Nonsmoker Start:23-Dec-2019 Instruction Type:Patient Education Patient Instructions Indication:BMI 27.0-27.9,adult Start:23-Dec-2019 Instruction Type:Provider Instructions for Treatment How to access health informa tion online Indication:Nonsmoker Start:23-Oct-2019 Instruction Type:Patient Education How to access health informa tion online - Detail Indication:Nonsmoker Start:23-Oct-2019 Instruction Type:Patient Education Patient Instructions Indication:Nonsmoker Start:23-Oct-2019 Instruction Type:Provider Instructions for Treatment How to access health informa tion online Indication:BMI 27.0-27.9,adult Start:21-Oct-2019 Instruction Type:Patient Education How to access health informa tion online - Detail Indication:BMI 27.0-27.9,adult Start:21-Oct-2019 Instruction Type:Patient Education Patient Instructions Indication:BMI 27.0-27.9,adult Start:21-Oct-2019 Instruction Type:Provider Instructions for Treatment How to access health informa tion online Indication:Nonsmoker Start:07-Oct-2019 Instruction Type:Patient Education How to access health informa tion online - Detail Indication:Nonsmoker Start:07-Oct-2019 Instruction Type:Patient Education Patient Instructions Indication:Nonsmoker Start:07-Oct-2019 Instruction Type:Provider Instructions for Treatment How to access health informa tion online Indication:Abnormal glucose tolerance test Start:22-Apr-2018 Instruction Type:Patient Education How to access health informa tion online - Detail Indication:Abnormal glucose tolerance test Start:22-Apr-2018 Instruction Type:Patient Education Patient Instructions Indication:Obstructive sleep apnea, adult Start:22-Apr-2018 Instruction Type:Provider Instructions for Treatment Patient Instructions Indication:Abnormal cardiac function test Start:18-May-2016 Instruction Type:Provider Instructions for Treatment How to access health informa tion online Indication:Abnormal glucose tolerance test Start:18-Oct-2015 Instruction Type:Patient Education How to access health informa tion online - Detail Indication:Abnormal glucose tolerance test Start:18-Oct-2015 Instruction Type:Patient Education Patient Instructions Indication:Abnormal glucose tolerance test Start:18-Oct-2015 Instruction Type:Provider Instructions for Treatment Patient Instructions Indication:Depressive disorder Start:06-Jul-2013 Instruction Type:Provider Instructions for Treatment [facility]; [facility] Work Phone: Instructions* Name Dates Details Patient Instructions Indication:Hypertension Start:05-Jun-2022 Instruction Type:Provider Instructions for Treatment How to Access Health Informa tion Online using Patient Portal and [employer]rd [employer] Apps Indication:Hypertension Start:05-Jun-2022 Instruction Type:Patient Education Patient Instructions Indication:BMI 27.0-27.9,adult Start:08-May-2022 Instruction Type:Provider Instructions for Treatment How to Access Health Informa tion Online using Patient Portal and [employer] Apps Indication:BMI 27.0-27.9,adult Start:08-May-2022 Instruction Type:Patient Education Patient Instructions Indication:BMI 28.0-28.9,adult Start:05-Dec-2021 Instruction Type:Provider Instructions for Treatment How to Access Health Informa tion Online using Patient Portal and [employer] Apps Indication:BMI 28.0-28.9,adult Start:05-Dec-2021 Instruction Type:Patient Education Patient Instructions Indication:BMI 28.0-28.9,adult Start:27-Nov-2021 Instruction Type:Provider Instructions for Treatment How to Access Health Informa tion Online using Patient Portal and [employer] Apps Indication:BMI 28.0-28.9,adult Start:27-Nov-2021 Instruction Type:Patient Education Patient Instructions Indication:BMI 27.0-27.9,adult Start:30-Jun-2021 Instruction Type:Provider Instructions for Treatment How to Access Health Informa tion Online using Patient Portal and [employer] Apps Indication:BMI 27.0-27.9,adult Start:30-Jun-2021 Instruction Type:Patient Education Patient Instructions Indication:Screening for prostate cancer Start:28-Dec-2020 Instruction Type:Provider Instructions for Treatment How to Access Health Informa tion Online using Patient Portal and [employer] Apps Indication:Nonsmoker Start:28-Dec-2020 Instruction Type:Patient Education How to access health informa tion online Indication:Nonsmoker Start:29-Jun-2020 Instruction Type:Patient Education How to access health informa tion online - Detail Indication:Nonsmoker Start:29-Jun-2020 Instruction Type:Patient Education Patient Instructions Indication:BMI 27.0-27.9,adult Start:29-Jun-2020 Instruction Type:Provider Instructions for Treatment How to access health informa tion online Indication:Nonsmoker Start:29-Mar-2020 Instruction Type:Patient Education How to access health informa tion online - Detail Indication:Nonsmoker Start:29-Mar-2020 Instruction Type:Patient Education Patient Instructions Indication:Nonsmoker Start:29-Mar-2020 Instruction Type:Provider Instructions for Treatment How to access health informa tion online Indication:Nonsmoker Start:23-Dec-2019 Instruction Type:Patient Education How to access health informa tion online - Detail Indication:Nonsmoker Start:23-Dec-2019 Instruction Type:Patient Education Patient Instructions Indication:BMI 27.0-27.9,adult Start:23-Dec-2019 Instruction Type:Provider Instructions for Treatment How to access health informa tion online Indication:Nonsmoker Start:23-Oct-2019 Instruction Type:Patient Education How to access health informa tion online - Detail Indication:Nonsmoker Start:23-Oct-2019 Instruction Type:Patient Education Patient Instructions Indication:Nonsmoker Start:23-Oct-2019 Instruction Type:Provider Instructions for Treatment How to access health informa tion online Indication:BMI 27.0-27.9,adult Start:21-Oct-2019 Instruction Type:Patient Education How to access health informa tion online - Detail Indication:BMI 27.0-27.9,adult Start:21-Oct-2019 Instruction Type:Patient Education Patient Instructions Indication:BMI 27.0-27.9,adult Start:21-Oct-2019 Instruction Type:Provider Instructions for Treatment How to access health informa tion online Indication:Nonsmoker Start:07-Oct-2019 Instruction Type:Patient Education How to access health informa tion online - Detail Indication:Nonsmoker Start:07-Oct-2019 Instruction Type:Patient Education Patient Instructions Indication:Nonsmoker Start:07-Oct-2019 Instruction Type:Provider Instructions for Treatment How to access health informa tion online Indication:Abnormal glucose tolerance test Start:22-Apr-2018 Instruction Type:Patient Education How to access health informa tion online - Detail Indication:Abnormal glucose tolerance test Start:22-Apr-2018 Instruction Type:Patient Education Patient Instructions Indication:Obstructive sleep apnea, adult Start:22-Apr-2018 Instruction Type:Provider Instructions for Treatment Patient Instructions Indication:Abnormal cardiac function test Start:18-May-2016 Instruction Type:Provider Instructions for Treatment How to access health informa tion online Indication:Abnormal glucose tolerance test Start:18-Oct-2015 Instruction Type:Patient Education How to access health informa tion online - Detail Indication:Abnormal glucose tolerance test Start:18-Oct-2015 Instruction Type:Patient Education Patient Instructions Indication:Abnormal glucose tolerance test Start:18-Oct-2015 Instruction Type:Provider Instructions for Treatment Patient Instructions Indication:Depressive disorder Start:06-Jul-2013 Instruction Type:Provider Instructions for Treatment [facility]; [facility] Work Phone: Instructions* Name Dates Details Patient Instructions Indication:Nonsmoker Start:25-Dec-2022 Instruction Type:Provider Instructions for Treatment How to Access Health Informa tion Online using Patient Portal and [employer] Apps Indication:Nonsmoker Start:25-Dec-2022 Instruction Type:Patient Education Patient Instructions Indication:Hypertension Start:05-Jun-2022 Instruction Type:Provider Instructions for Treatment How to Access Health Informa tion Online using Patient Portal and [employer] Apps Indication:Hypertension Start:05-Jun-2022 Instruction Type:Patient Education Patient Instructions Indication:BMI 27.0-27.9,adult Start:08-May-2022 Instruction Type:Provider Instructions for Treatment How to Access Health Informa tion Online using Patient Portal and [employer] Apps Indication:BMI 27.0-27.9,adult Start:08-May-2022 Instruction Type:Patient Education Patient Instructions Indication:BMI 28.0-28.9,adult Start:05-Dec-2021 Instruction Type:Provider Instructions for Treatment How to Access Health Informa tion Online using Patient Portal and [employer] Apps Indication:BMI 28.0-28.9,adult Start:05-Dec-2021 Instruction Type:Patient Education Patient Instructions Indication:BMI 28.0-28.9,adult Start:27-Nov-2021 Instruction Type:Provider Instructions for Treatment How to Access Health Informa tion Online using Patient Portal and [employer] Apps Indication:BMI 28.0-28.9,adult Start:27-Nov-2021 Instruction Type:Patient Education Patient Instructions Indication:BMI 27.0-27.9,adult Start:30-Jun-2021 Instruction Type:Provider Instructions for Treatment How to Access Health Informa tion Online using Patient Portal and [employer] Apps Indication:BMI 27.0-27.9,adult Start:30-Jun-2021 Instruction Type:Patient Education Patient Instructions Indication:Screening for prostate cancer Start:28-Dec-2020 Instruction Type:Provider Instructions for Treatment How to Access Health Informa tion Online using Patient Portal and [employer] Apps Indication:Nonsmoker Start:28-Dec-2020 Instruction Type:Patient Education How to access health informa tion online Indication:Nonsmoker Start:29-Jun-2020 Instruction Type:Patient Education How to access health informa tion online - Detail Indication:Nonsmoker Start:29-Jun-2020 Instruction Type:Patient Education Patient Instructions Indication:BMI 27.0-27.9,adult Start:29-Jun-2020 Instruction Type:Provider Instructions for Treatment How to access health informa tion online Indication:Nonsmoker Start:29-Mar-2020 Instruction Type:Patient Education How to access health informa tion online - Detail Indication:Nonsmoker Start:29-Mar-2020 Instruction Type:Patient Education Patient Instructions Indication:Nonsmoker Start:29-Mar-2020 Instruction Type:Provider Instructions for Treatment How to access health informa tion online Indication:Nonsmoker Start:23-Dec-2019 Instruction Type:Patient Education How to access health informa tion online - Detail Indication:Nonsmoker Start:23-Dec-2019 Instruction Type:Patient Education Patient Instructions Indication:BMI 27.0-27.9,adult Start:23-Dec-2019 Instruction Type:Provider Instructions for Treatment How to access health informa tion online Indication:Nonsmoker Start:23-Oct-2019 Instruction Type:Patient Education How to access health informa tion online - Detail Indication:Nonsmoker Start:23-Oct-2019 Instruction Type:Patient Education Patient Instructions Indication:Nonsmoker Start:23-Oct-2019 Instruction Type:Provider Instructions for Treatment How to access health informa tion online Indication:BMI 27.0-27.9,adult Start:21-Oct-2019 Instruction Type:Patient Education How to access health informa tion online - Detail Indication:BMI 27.0-27.9,adult Start:21-Oct-2019 Instruction Type:Patient Education Patient Instructions Indication:BMI 27.0-27.9,adult Start:21-Oct-2019 Instruction Type:Provider Instructions for Treatment How to access health informa tion online Indication:Nonsmoker Start:07-Oct-2019 Instruction Type:Patient Education How to access health informa tion online - Detail Indication:Nonsmoker Start:07-Oct-2019 Instruction Type:Patient Education Patient Instructions Indication:Nonsmoker Start:07-Oct-2019 Instruction Type:Provider Instructions for Treatment How to access health informa tion online Indication:Abnormal glucose tolerance test Start:22-Apr-2018 Instruction Type:Patient Education How to access health informa tion online - Detail Indication:Abnormal glucose tolerance test Start:22-Apr-2018 Instruction Type:Patient Education Patient Instructions Indication:Obstructive sleep apnea, adult Start:22-Apr-2018 Instruction Type:Provider Instructions for Treatment Patient Instructions Indication:Abnormal cardiac function test Start:18-May-2016 Instruction Type:Provider Instructions for Treatment How to access health informa tion online Indication:Abnormal glucose tolerance test Start:18-Oct-2015 Instruction Type:Patient Education How to access health informa tion online - Detail Indication:Abnormal glucose tolerance test Start:18-Oct-2015 Instruction Type:Patient Education Patient Instructions Indication:Abnormal glucose tolerance test Start:18-Oct-2015 Instruction Type:Provider Instructions for Treatment Patient Instructions Indication:Depressive disorder Start:06-Jul-2013 Instruction Type:Provider Instructions for Treatment [facility]; [facility] Work Phone: Instructions* Name Dates Details Patient Instructions Indication:Nonsmoker Start:25-Dec-2022 Instruction Type:Provider Instructions for Treatment How to Access Health Informa tion Online using Patient Portal and [employer] Apps Indication:Nonsmoker Start:25-Dec-2022 Instruction Type:Patient Education Patient Instructions Indication:Hypertension Start:05-Jun-2022 Instruction Type:Provider Instructions for Treatment How to Access Health Informa tion Online using Patient Portal and [employer] Apps Indication:Hypertension Start:05-Jun-2022 Instruction Type:Patient Education Patient Instructions Indication:BMI 27.0-27.9,adult Start:08-May-2022 Instruction Type:Provider Instructions for Treatment How to Access Health Informa tion Online using Patient Portal and [employer] Apps Indication:BMI 27.0-27.9,adult Start:08-May-2022 Instruction Type:Patient Education Patient Instructions Indication:BMI 28.0-28.9,adult Start:05-Dec-2021 Instruction Type:Provider Instructions for Treatment How to Access Health Informa tion Online using Patient Portal and [employer] Apps Indication:BMI 28.0-28.9,adult Start:05-Dec-2021 Instruction Type:Patient Education Patient Instructions Indication:BMI 28.0-28.9,adult Start:27-Nov-2021 Instruction Type:Provider Instructions for Treatment How to Access Health Informa tion Online using Patient Portal and [employer] Apps Indication:BMI 28.0-28.9,adult Start:27-Nov-2021 Instruction Type:Patient Education Patient Instructions Indication:BMI 27.0-27.9,adult Start:30-Jun-2021 Instruction Type:Provider Instructions for Treatment How to Access Health Informa tion Online using Patient Portal and [employer] Apps Indication:BMI 27.0-27.9,adult Start:30-Jun-2021 Instruction Type:Patient Education Patient Instructions Indication:Screening for prostate cancer Start:28-Dec-2020 Instruction Type:Provider Instructions for Treatment How to Access Health Informa tion Online using Patient Portal and [employer] Apps Indication:Nonsmoker Start:28-Dec-2020 Instruction Type:Patient Education How to access health informa tion online Indication:Nonsmoker Start:29-Jun-2020 Instruction Type:Patient Education How to access health informa tion online - Detail Indication:Nonsmoker Start:29-Jun-2020 Instruction Type:Patient Education Patient Instructions Indication:BMI 27.0-27.9,adult Start:29-Jun-2020 Instruction Type:Provider Instructions for Treatment How to access health informa tion online Indication:Nonsmoker Start:29-Mar-2020 Instruction Type:Patient Education How to access health informa tion online - Detail Indication:Nonsmoker Start:29-Mar-2020 Instruction Type:Patient Education Patient Instructions Indication:Nonsmoker Start:29-Mar-2020 Instruction Type:Provider Instructions for Treatment How to access health informa tion online Indication:Nonsmoker Start:23-Dec-2019 Instruction Type:Patient Education How to access health informa tion online - Detail Indication:Nonsmoker Start:23-Dec-2019 Instruction Type:Patient Education Patient Instructions Indication:BMI 27.0-27.9,adult Start:23-Dec-2019 Instruction Type:Provider Instructions for Treatment How to access health informa tion online Indication:Nonsmoker Start:23-Oct-2019 Instruction Type:Patient Education How to access health informa tion online - Detail Indication:Nonsmoker Start:23-Oct-2019 Instruction Type:Patient Education Patient Instructions Indication:Nonsmoker Start:23-Oct-2019 Instruction Type:Provider Instructions for Treatment How to access health informa tion online Indication:BMI 27.0-27.9,adult Start:21-Oct-2019 Instruction Type:Patient Education How to access health informa tion online - Detail Indication:BMI 27.0-27.9,adult Start:21-Oct-2019 Instruction Type:Patient Education Patient Instructions Indication:BMI 27.0-27.9,adult Start:21-Oct-2019 Instruction Type:Provider Instructions for Treatment How to access health informa tion online Indication:Nonsmoker Start:07-Oct-2019 Instruction Type:Patient Education How to access health informa tion online - Detail Indication:Nonsmoker Start:07-Oct-2019 Instruction Type:Patient Education Patient Instructions Indication:Nonsmoker Start:07-Oct-2019 Instruction Type:Provider Instructions for Treatment How to access health informa tion online Indication:Abnormal glucose tolerance test Start:22-Apr-2018 Instruction Type:Patient Education How to access health informa tion online - Detail Indication:Abnormal glucose tolerance test Start:22-Apr-2018 Instruction Type:Patient Education Patient Instructions Indication:Obstructive sleep apnea, adult Start:22-Apr-2018 Instruction Type:Provider Instructions for Treatment Patient Instructions Indication:Abnormal cardiac function test Start:18-May-2016 Instruction Type:Provider Instructions for Treatment How to access health informa tion online Indication:Abnormal glucose tolerance test Start:18-Oct-2015 Instruction Type:Patient Education How to access health informa tion online - Detail Indication:Abnormal glucose tolerance test Start:18-Oct-2015 Instruction Type:Patient Education Patient Instructions Indication:Abnormal glucose tolerance test Start:18-Oct-2015 Instruction Type:Provider Instructions for Treatment Patient Instructions Indication:Depressive disorder Start:06-Jul-2013 Instruction Type:Provider Instructions for Treatment [facility]; [facility] Work Phone: Instructions* Name Dates Details Patient Instructions Indication:Nonsmoker Start:25-Dec-2022 Instruction Type:Provider Instructions for Treatment How to Access Health Informa tion Online using Patient Portal and [employer] Apps Indication:Nonsmoker Start:25-Dec-2022 Instruction Type:Patient Education Patient Instructions Indication:Hypertension Start:05-Jun-2022 Instruction Type:Provider Instructions for Treatment How to Access Health Informa tion Online using Patient Portal and [employer] Apps Indication:Hypertension Start:05-Jun-2022 Instruction Type:Patient Education Patient Instructions Indication:BMI 27.0-27.9,adult Start:08-May-2022 Instruction Type:Provider Instructions for Treatment How to Access Health Informa tion Online using Patient Portal and [employer] Apps Indication:BMI 27.0-27.9,adult Start:08-May-2022 Instruction Type:Patient Education Patient Instructions Indication:BMI 28.0-28.9,adult Start:05-Dec-2021 Instruction Type:Provider Instructions for Treatment How to Access Health Informa tion Online using Patient Portal and [employer] Apps Indication:BMI 28.0-28.9,adult Start:05-Dec-2021 Instruction Type:Patient Education Patient Instructions Indication:BMI 28.0-28.9,adult Start:27-Nov-2021 Instruction Type:Provider Instructions for Treatment How to Access Health Informa tion Online using Patient Portal and [employer] Apps Indication:BMI 28.0-28.9,adult Start:27-Nov-2021 Instruction Type:Patient Education Patient Instructions Indication:BMI 27.0-27.9,adult Start:30-Jun-2021 Instruction Type:Provider Instructions for Treatment How to Access Health Informa tion Online using Patient Portal and [employer] Apps Indication:BMI 27.0-27.9,adult Start:30-Jun-2021 Instruction Type:Patient Education Patient Instructions Indication:Screening for prostate cancer Start:28-Dec-2020 Instruction Type:Provider Instructions for Treatment How to Access Health Informa tion Online using Patient Portal and [employer] Apps Indication:Nonsmoker Start:28-Dec-2020 Instruction Type:Patient Education How to access health informa tion online Indication:Nonsmoker Start:29-Jun-2020 Instruction Type:Patient Education How to access health informa tion online - Detail Indication:Nonsmoker Start:29-Jun-2020 Instruction Type:Patient Education Patient Instructions Indication:BMI 27.0-27.9,adult Start:29-Jun-2020 Instruction Type:Provider Instructions for Treatment How to access health informa tion online Indication:Nonsmoker Start:29-Mar-2020 Instruction Type:Patient Education How to access health informa tion online - Detail Indication:Nonsmoker Start:29-Mar-2020 Instruction Type:Patient Education Patient Instructions Indication:Nonsmoker Start:29-Mar-2020 Instruction Type:Provider Instructions for Treatment How to access health informa tion online Indication:Nonsmoker Start:23-Dec-2019 Instruction Type:Patient Education How to access health informa tion online - Detail Indication:Nonsmoker Start:23-Dec-2019 Instruction Type:Patient Education Patient Instructions Indication:BMI 27.0-27.9,adult Start:23-Dec-2019 Instruction Type:Provider Instructions for Treatment How to access health informa tion online Indication:Nonsmoker Start:23-Oct-2019 Instruction Type:Patient Education How to access health informa tion online - Detail Indication:Nonsmoker Start:23-Oct-2019 Instruction Type:Patient Education Patient Instructions Indication:Nonsmoker Start:23-Oct-2019 Instruction Type:Provider Instructions for Treatment How to access health informa tion online Indication:BMI 27.0-27.9,adult Start:21-Oct-2019 Instruction Type:Patient Education How to access health informa tion online - Detail Indication:BMI 27.0-27.9,adult Start:21-Oct-2019 Instruction Type:Patient Education Patient Instructions Indication:BMI 27.0-27.9,adult Start:21-Oct-2019 Instruction Type:Provider Instructions for Treatment How to access health informa tion online Indication:Nonsmoker Start:07-Oct-2019 Instruction Type:Patient Education How to access health informa tion online - Detail Indication:Nonsmoker Start:07-Oct-2019 Instruction Type:Patient Education Patient Instructions Indication:Nonsmoker Start:07-Oct-2019 Instruction Type:Provider Instructions for Treatment How to access health informa tion online Indication:Abnormal glucose tolerance test Start:22-Apr-2018 Instruction Type:Patient Education How to access health informa tion online - Detail Indication:Abnormal glucose tolerance test Start:22-Apr-2018 Instruction Type:Patient Education Patient Instructions Indication:Obstructive sleep apnea, adult Start:22-Apr-2018 Instruction Type:Provider Instructions for Treatment Patient Instructions Indication:Abnormal cardiac function test Start:18-May-2016 Instruction Type:Provider Instructions for Treatment How to access health informa tion online Indication:Abnormal glucose tolerance test Start:18-Oct-2015 Instruction Type:Patient Education How to access health informa tion online - Detail Indication:Abnormal glucose tolerance test Start:18-Oct-2015 Instruction Type:Patient Education Patient Instructions Indication:Abnormal glucose tolerance test Start:18-Oct-2015 Instruction Type:Provider Instructions for Treatment Patient Instructions Indication:Depressive disorder Start:06-Jul-2013 Instruction Type:Provider Instructions for Treatment [facility] Work Phone: Instructions* Name Dates Details Patient Instructions Indication:BMI 27.0-27.9,adult (Renamed from Body mass index (BMI) of 27.0 to 27.9 in adult) Start:09-Apr-2023 Instruction Type:Provider Instructions for Treatment How to Access Health Informa tion Online using Patient Portal and [employer]rd [employer] Apps Indication:BMI 27.0-27.9,adult (Renamed from Body mass index (BMI) of 27.0 to 27.9 in adult) Start:09-Apr-2023 Instruction Type:Patient Education Patient Instructions Indication:Hypertension Start:26-Mar-2023 Instruction Type:Provider Instructions for Treatment How to Access Health Informa tion Online using Patient Portal and [employer] Apps Indication:Hypertension Start:26-Mar-2023 Instruction Type:Patient Education Patient Instructions Indication:Nonsmoker Start:25-Dec-2022 Instruction Type:Provider Instructions for Treatment How to Access Health Informa tion Online using Patient Portal and [employer] Apps Indication:Nonsmoker Start:25-Dec-2022 Instruction Type:Patient Education Patient Instructions Indication:Hypertension Start:05-Jun-2022 Instruction Type:Provider Instructions for Treatment How to Access Health Informa tion Online using Patient Portal and [employer] Apps Indication:Hypertension Start:05-Jun-2022 Instruction Type:Patient Education Patient Instructions Indication:BMI 27.0-27.9,adult Start:08-May-2022 Instruction Type:Provider Instructions for Treatment How to Access Health Informa tion Online using Patient Portal and [employer] Apps Indication:BMI 27.0-27.9,adult Start:08-May-2022 Instruction Type:Patient Education Patient Instructions Indication:BMI 28.0-28.9,adult Start:05-Dec-2021 Instruction Type:Provider Instructions for Treatment How to Access Health Informa tion Online using Patient Portal and [employer] Apps Indication:BMI 28.0-28.9,adult Start:05-Dec-2021 Instruction Type:Patient Education Patient Instructions Indication:BMI 28.0-28.9,adult Start:27-Nov-2021 Instruction Type:Provider Instructions for Treatment How to Access Health Informa tion Online using Patient Portal and [employer] Apps Indication:BMI 28.0-28.9,adult Start:27-Nov-2021 Instruction Type:Patient Education Patient Instructions Indication:BMI 27.0-27.9,adult Start:30-Jun-2021 Instruction Type:Provider Instructions for Treatment How to Access Health Informa tion Online using Patient Portal and [employer] Apps Indication:BMI 27.0-27.9,adult Start:30-Jun-2021 Instruction Type:Patient Education Patient Instructions Indication:Screening for prostate cancer Start:28-Dec-2020 Instruction Type:Provider Instructions for Treatment How to Access Health Informa tion Online using Patient Portal and [employer] Apps Indication:Nonsmoker Start:28-Dec-2020 Instruction Type:Patient Education How to access health informa tion online Indication:Nonsmoker Start:29-Jun-2020 Instruction Type:Patient Education How to access health informa tion online - Detail Indication:Nonsmoker Start:29-Jun-2020 Instruction Type:Patient Education Patient Instructions Indication:BMI 27.0-27.9,adult Start:29-Jun-2020 Instruction Type:Provider Instructions for Treatment How to access health informa tion online Indication:Nonsmoker Start:29-Mar-2020 Instruction Type:Patient Education How to access health informa tion online - Detail Indication:Nonsmoker Start:29-Mar-2020 Instruction Type:Patient Education Patient Instructions Indication:Nonsmoker Start:29-Mar-2020 Instruction Type:Provider Instructions for Treatment How to access health informa tion online Indication:Nonsmoker Start:23-Dec-2019 Instruction Type:Patient Education How to access health informa tion online - Detail Indication:Nonsmoker Start:23-Dec-2019 Instruction Type:Patient Education Patient Instructions Indication:BMI 27.0-27.9,adult Start:23-Dec-2019 Instruction Type:Provider Instructions for Treatment How to access health informa tion online Indication:Nonsmoker Start:23-Oct-2019 Instruction Type:Patient Education How to access health informa tion online - Detail Indication:Nonsmoker Start:23-Oct-2019 Instruction Type:Patient Education Patient Instructions Indication:Nonsmoker Start:23-Oct-2019 Instruction Type:Provider Instructions for Treatment How to access health informa tion online Indication:BMI 27.0-27.9,adult Start:21-Oct-2019 Instruction Type:Patient Education How to access health informa tion online - Detail Indication:BMI 27.0-27.9,adult Start:21-Oct-2019 Instruction Type:Patient Education Patient Instructions Indication:BMI 27.0-27.9,adult Start:21-Oct-2019 Instruction Type:Provider Instructions for Treatment How to access health informa tion online Indication:Nonsmoker Start:07-Oct-2019 Instruction Type:Patient Education How to access health informa tion online - Detail Indication:Nonsmoker Start:07-Oct-2019 Instruction Type:Patient Education Patient Instructions Indication:Nonsmoker Start:07-Oct-2019 Instruction Type:Provider Instructions for Treatment How to access health informa tion online Indication:Abnormal glucose tolerance test Start:22-Apr-2018 Instruction Type:Patient Education How to access health informa tion online - Detail Indication:Abnormal glucose tolerance test Start:22-Apr-2018 Instruction Type:Patient Education Patient Instructions Indication:Obstructive sleep apnea, adult Start:22-Apr-2018 Instruction Type:Provider Instructions for Treatment Patient Instructions Indication:Abnormal cardiac function test Start:18-May-2016 Instruction Type:Provider Instructions for Treatment How to access health informa tion online Indication:Abnormal glucose tolerance test Start:18-Oct-2015 Instruction Type:Patient Education How to access health informa tion online - Detail Indication:Abnormal glucose tolerance test Start:18-Oct-2015 Instruction Type:Patient Education Patient Instructions Indication:Abnormal glucose tolerance test Start:18-Oct-2015 Instruction Type:Provider Instructions for Treatment Patient Instructions Indication:Depressive disorder Start:06-Jul-2013 Instruction Type:Provider Instructions for Treatment [facility]; [facility] Work Phone: Instructions* Name Dates Details Patient Instructions Indication:BMI 27.0-27.9,adult (Renamed from Body mass index (BMI) of 27.0 to 27.9 in adult) Start:09-Apr-2023 Instruction Type:Provider Instructions for Treatment How to Access Health Informa tion Online using Patient Portal and [employer] Apps Indication:BMI 27.0-27.9,adult (Renamed from Body mass index (BMI) of 27.0 to 27.9 in adult) Start:09-Apr-2023 Instruction Type:Patient Education Patient Instructions Indication:Hypertension Start:26-Mar-2023 Instruction Type:Provider Instructions for Treatment How to Access Health Informa tion Online using Patient Portal and [employer] Apps Indication:Hypertension Start:26-Mar-2023 Instruction Type:Patient Education Patient Instructions Indication:Nonsmoker Start:25-Dec-2022 Instruction Type:Provider Instructions for Treatment How to Access Health Informa tion Online using Patient Portal and [employer] Apps Indication:Nonsmoker Start:25-Dec-2022 Instruction Type:Patient Education Patient Instructions Indication:Hypertension Start:05-Jun-2022 Instruction Type:Provider Instructions for Treatment How to Access Health Informa tion Online using Patient Portal and [employer] Apps Indication:Hypertension Start:05-Jun-2022 Instruction Type:Patient Education Patient Instructions Indication:BMI 27.0-27.9,adult Start:08-May-2022 Instruction Type:Provider Instructions for Treatment How to Access Health Informa tion Online using Patient Portal and [employer] Apps Indication:BMI 27.0-27.9,adult Start:08-May-2022 Instruction Type:Patient Education Patient Instructions Indication:BMI 28.0-28.9,adult Start:05-Dec-2021 Instruction Type:Provider Instructions for Treatment How to Access Health Informa tion Online using Patient Portal and [employer] Apps Indication:BMI 28.0-28.9,adult Start:05-Dec-2021 Instruction Type:Patient Education Patient Instructions Indication:BMI 28.0-28.9,adult Start:27-Nov-2021 Instruction Type:Provider Instructions for Treatment How to Access Health Informa tion Online using Patient Portal and [employer] Apps Indication:BMI 28.0-28.9,adult Start:27-Nov-2021 Instruction Type:Patient Education Patient Instructions Indication:BMI 27.0-27.9,adult Start:30-Jun-2021 Instruction Type:Provider Instructions for Treatment How to Access Health Informa tion Online using Patient Portal and [employer] Apps Indication:BMI 27.0-27.9,adult Start:30-Jun-2021 Instruction Type:Patient Education Patient Instructions Indication:Screening for prostate cancer Start:28-Dec-2020 Instruction Type:Provider Instructions for Treatment How to Access Health Informa tion Online using Patient Portal and [employer] Apps Indication:Nonsmoker Start:28-Dec-2020 Instruction Type:Patient Education How to access health informa tion online Indication:Nonsmoker Start:29-Jun-2020 Instruction Type:Patient Education How to access health informa tion online - Detail Indication:Nonsmoker Start:29-Jun-2020 Instruction Type:Patient Education Patient Instructions Indication:BMI 27.0-27.9,adult Start:29-Jun-2020 Instruction Type:Provider Instructions for Treatment How to access health informa tion online Indication:Nonsmoker Start:29-Mar-2020 Instruction Type:Patient Education How to access health informa tion online - Detail Indication:Nonsmoker Start:29-Mar-2020 Instruction Type:Patient Education Patient Instructions Indication:Nonsmoker Start:29-Mar-2020 Instruction Type:Provider Instructions for Treatment How to access health informa tion online Indication:Nonsmoker Start:23-Dec-2019 Instruction Type:Patient Education How to access health informa tion online - Detail Indication:Nonsmoker Start:23-Dec-2019 Instruction Type:Patient Education Patient Instructions Indication:BMI 27.0-27.9,adult Start:23-Dec-2019 Instruction Type:Provider Instructions for Treatment How to access health informa tion online Indication:Nonsmoker Start:23-Oct-2019 Instruction Type:Patient Education How to access health informa tion online - Detail Indication:Nonsmoker Start:23-Oct-2019 Instruction Type:Patient Education Patient Instructions Indication:Nonsmoker Start:23-Oct-2019 Instruction Type:Provider Instructions for Treatment How to access health informa tion online Indication:BMI 27.0-27.9,adult Start:21-Oct-2019 Instruction Type:Patient Education How to access health informa tion online - Detail Indication:BMI 27.0-27.9,adult Start:21-Oct-2019 Instruction Type:Patient Education Patient Instructions Indication:BMI 27.0-27.9,adult Start:21-Oct-2019 Instruction Type:Provider Instructions for Treatment How to access health informa tion online Indication:Nonsmoker Start:07-Oct-2019 Instruction Type:Patient Education How to access health informa tion online - Detail Indication:Nonsmoker Start:07-Oct-2019 Instruction Type:Patient Education Patient Instructions Indication:Nonsmoker Start:07-Oct-2019 Instruction Type:Provider Instructions for Treatment How to access health informa tion online Indication:Abnormal glucose tolerance test Start:22-Apr-2018 Instruction Type:Patient Education How to access health informa tion online - Detail Indication:Abnormal glucose tolerance test Start:22-Apr-2018 Instruction Type:Patient Education Patient Instructions Indication:Obstructive sleep apnea, adult Start:22-Apr-2018 Instruction Type:Provider Instructions for Treatment Patient Instructions Indication:Abnormal cardiac function test Start:18-May-2016 Instruction Type:Provider Instructions for Treatment How to access health informa tion online Indication:Abnormal glucose tolerance test Start:18-Oct-2015 Instruction Type:Patient Education How to access health informa tion online - Detail Indication:Abnormal glucose tolerance test Start:18-Oct-2015 Instruction Type:Patient Education Patient Instructions Indication:Abnormal glucose tolerance test Start:18-Oct-2015 Instruction Type:Provider Instructions for Treatment Patient Instructions Indication:Depressive disorder Start:06-Jul-2013 Instruction Type:Provider Instructions for Treatment [facility]; [facility] Work Phone: Instructions* Name Dates Details Patient Instructions Indication:BMI 27.0-27.9,adult (Renamed from Body mass index (BMI) of 27.0 to 27.9 in adult) Start:09-Apr-2023 Instruction Type:Provider Instructions for Treatment How to Access Health Informa tion Online using Patient Portal and [employer] Apps Indication:BMI 27.0-27.9,adult (Renamed from Body mass index (BMI) of 27.0 to 27.9 in adult) Start:09-Apr-2023 Instruction Type:Patient Education Patient Instructions Indication:Hypertension Start:26-Mar-2023 Instruction Type:Provider Instructions for Treatment How to Access Health Informa tion Online using Patient Portal and [employer] Apps Indication:Hypertension Start:26-Mar-2023 Instruction Type:Patient Education Patient Instructions Indication:Nonsmoker Start:25-Dec-2022 Instruction Type:Provider Instructions for Treatment How to Access Health Informa tion Online using Patient Portal and [employer] Apps Indication:Nonsmoker Start:25-Dec-2022 Instruction Type:Patient Education Patient Instructions Indication:Hypertension Start:05-Jun-2022 Instruction Type:Provider Instructions for Treatment How to Access Health Informa tion Online using Patient Portal and [employer] Apps Indication:Hypertension Start:05-Jun-2022 Instruction Type:Patient Education Patient Instructions Indication:BMI 27.0-27.9,adult Start:08-May-2022 Instruction Type:Provider Instructions for Treatment How to Access Health Informa tion Online using Patient Portal and [employer] Apps Indication:BMI 27.0-27.9,adult Start:08-May-2022 Instruction Type:Patient Education Patient Instructions Indication:BMI 28.0-28.9,adult Start:05-Dec-2021 Instruction Type:Provider Instructions for Treatment How to Access Health Informa tion Online using Patient Portal and [employer] Apps Indication:BMI 28.0-28.9,adult Start:05-Dec-2021 Instruction Type:Patient Education Patient Instructions Indication:BMI 28.0-28.9,adult Start:27-Nov-2021 Instruction Type:Provider Instructions for Treatment How to Access Health Informa tion Online using Patient Portal and [employer] Apps Indication:BMI 28.0-28.9,adult Start:27-Nov-2021 Instruction Type:Patient Education Patient Instructions Indication:BMI 27.0-27.9,adult Start:30-Jun-2021 Instruction Type:Provider Instructions for Treatment How to Access Health Informa tion Online using Patient Portal and [employer] Apps Indication:BMI 27.0-27.9,adult Start:30-Jun-2021 Instruction Type:Patient Education Patient Instructions Indication:Screening for prostate cancer Start:28-Dec-2020 Instruction Type:Provider Instructions for Treatment How to Access Health Informa tion Online using Patient Portal and [employer] Apps Indication:Nonsmoker Start:28-Dec-2020 Instruction Type:Patient Education How to access health informa tion online Indication:Nonsmoker Start:29-Jun-2020 Instruction Type:Patient Education How to access health informa tion online - Detail Indication:Nonsmoker Start:29-Jun-2020 Instruction Type:Patient Education Patient Instructions Indication:BMI 27.0-27.9,adult Start:29-Jun-2020 Instruction Type:Provider Instructions for Treatment How to access health informa tion online Indication:Nonsmoker Start:29-Mar-2020 Instruction Type:Patient Education How to access health informa tion online - Detail Indication:Nonsmoker Start:29-Mar-2020 Instruction Type:Patient Education Patient Instructions Indication:Nonsmoker Start:29-Mar-2020 Instruction Type:Provider Instructions for Treatment How to access health informa tion online Indication:Nonsmoker Start:23-Dec-2019 Instruction Type:Patient Education How to access health informa tion online - Detail Indication:Nonsmoker Start:23-Dec-2019 Instruction Type:Patient Education Patient Instructions Indication:BMI 27.0-27.9,adult Start:23-Dec-2019 Instruction Type:Provider Instructions for Treatment How to access health informa tion online Indication:Nonsmoker Start:23-Oct-2019 Instruction Type:Patient Education How to access health informa tion online - Detail Indication:Nonsmoker Start:23-Oct-2019 Instruction Type:Patient Education Patient Instructions Indication:Nonsmoker Start:23-Oct-2019 Instruction Type:Provider Instructions for Treatment How to access health informa tion online Indication:BMI 27.0-27.9,adult Start:21-Oct-2019 Instruction Type:Patient Education How to access health informa tion online - Detail Indication:BMI 27.0-27.9,adult Start:21-Oct-2019 Instruction Type:Patient Education Patient Instructions Indication:BMI 27.0-27.9,adult Start:21-Oct-2019 Instruction Type:Provider Instructions for Treatment How to access health informa tion online Indication:Nonsmoker Start:07-Oct-2019 Instruction Type:Patient Education How to access health informa tion online - Detail Indication:Nonsmoker Start:07-Oct-2019 Instruction Type:Patient Education Patient Instructions Indication:Nonsmoker Start:07-Oct-2019 Instruction Type:Provider Instructions for Treatment How to access health informa tion online Indication:Abnormal glucose tolerance test Start:22-Apr-2018 Instruction Type:Patient Education How to access health informa tion online - Detail Indication:Abnormal glucose tolerance test Start:22-Apr-2018 Instruction Type:Patient Education Patient Instructions Indication:Obstructive sleep apnea, adult Start:22-Apr-2018 Instruction Type:Provider Instructions for Treatment Patient Instructions Indication:Abnormal cardiac function test Start:18-May-2016 Instruction Type:Provider Instructions for Treatment How to access health informa tion online Indication:Abnormal glucose tolerance test Start:18-Oct-2015 Instruction Type:Patient Education How to access health informa tion online - Detail Indication:Abnormal glucose tolerance test Start:18-Oct-2015 Instruction Type:Patient Education Patient Instructions Indication:Abnormal glucose tolerance test Start:18-Oct-2015 Instruction Type:Provider Instructions for Treatment Patient Instructions Indication:Depressive disorder Start:06-Jul-2013 Instruction Type:Provider Instructions for Treatment [facility]; [facility] Work Phone: Instructions* Name Dates Details Patient Instructions Indication:BMI 27.0-27.9,adult (Renamed from Body mass index (BMI) of 27.0 to 27.9 in adult) Start:09-Apr-2023 Instruction Type:Provider Instructions for Treatment How to Access Health Informa tion Online using Patient Portal and [employer] Apps Indication:BMI 27.0-27.9,adult (Renamed from Body mass index (BMI) of 27.0 to 27.9 in adult) Start:09-Apr-2023 Instruction Type:Patient Education Patient Instructions Indication:Hypertension Start:26-Mar-2023 Instruction Type:Provider Instructions for Treatment How to Access Health Informa tion Online using Patient Portal and [employer] Apps Indication:Hypertension Start:26-Mar-2023 Instruction Type:Patient Education Patient Instructions Indication:Nonsmoker Start:25-Dec-2022 Instruction Type:Provider Instructions for Treatment How to Access Health Informa tion Online using Patient Portal and [employer] Apps Indication:Nonsmoker Start:25-Dec-2022 Instruction Type:Patient Education Patient Instructions Indication:Hypertension Start:05-Jun-2022 Instruction Type:Provider Instructions for Treatment How to Access Health Informa tion Online using Patient Portal and [employer] Apps Indication:Hypertension Start:05-Jun-2022 Instruction Type:Patient Education Patient Instructions Indication:BMI 27.0-27.9,adult Start:08-May-2022 Instruction Type:Provider Instructions for Treatment How to Access Health Informa tion Online using Patient Portal and [employer] Apps Indication:BMI 27.0-27.9,adult Start:08-May-2022 Instruction Type:Patient Education Patient Instructions Indication:BMI 28.0-28.9,adult Start:05-Dec-2021 Instruction Type:Provider Instructions for Treatment How to Access Health Informa tion Online using Patient Portal and [employer] Apps Indication:BMI 28.0-28.9,adult Start:05-Dec-2021 Instruction Type:Patient Education Patient Instructions Indication:BMI 28.0-28.9,adult Start:27-Nov-2021 Instruction Type:Provider Instructions for Treatment How to Access Health Informa tion Online using Patient Portal and [employer] Apps Indication:BMI 28.0-28.9,adult Start:27-Nov-2021 Instruction Type:Patient Education Patient Instructions Indication:BMI 27.0-27.9,adult Start:30-Jun-2021 Instruction Type:Provider Instructions for Treatment How to Access Health Informa tion Online using Patient Portal and [employer] Apps Indication:BMI 27.0-27.9,adult Start:30-Jun-2021 Instruction Type:Patient Education Patient Instructions Indication:Screening for prostate cancer Start:28-Dec-2020 Instruction Type:Provider Instructions for Treatment How to Access Health Informa tion Online using Patient Portal and [employer] Apps Indication:Nonsmoker Start:28-Dec-2020 Instruction Type:Patient Education How to access health informa tion online Indication:Nonsmoker Start:29-Jun-2020 Instruction Type:Patient Education How to access health informa tion online - Detail Indication:Nonsmoker Start:29-Jun-2020 Instruction Type:Patient Education Patient Instructions Indication:BMI 27.0-27.9,adult Start:29-Jun-2020 Instruction Type:Provider Instructions for Treatment How to access health informa tion online Indication:Nonsmoker Start:29-Mar-2020 Instruction Type:Patient Education How to access health informa tion online - Detail Indication:Nonsmoker Start:29-Mar-2020 Instruction Type:Patient Education Patient Instructions Indication:Nonsmoker Start:29-Mar-2020 Instruction Type:Provider Instructions for Treatment How to access health informa tion online Indication:Nonsmoker Start:23-Dec-2019 Instruction Type:Patient Education How to access health informa tion online - Detail Indication:Nonsmoker Start:23-Dec-2019 Instruction Type:Patient Education Patient Instructions Indication:BMI 27.0-27.9,adult Start:23-Dec-2019 Instruction Type:Provider Instructions for Treatment How to access health informa tion online Indication:Nonsmoker Start:23-Oct-2019 Instruction Type:Patient Education How to access health informa tion online - Detail Indication:Nonsmoker Start:23-Oct-2019 Instruction Type:Patient Education Patient Instructions Indication:Nonsmoker Start:23-Oct-2019 Instruction Type:Provider Instructions for Treatment How to access health informa tion online Indication:BMI 27.0-27.9,adult Start:21-Oct-2019 Instruction Type:Patient Education How to access health informa tion online - Detail Indication:BMI 27.0-27.9,adult Start:21-Oct-2019 Instruction Type:Patient Education Patient Instructions Indication:BMI 27.0-27.9,adult Start:21-Oct-2019 Instruction Type:Provider Instructions for Treatment How to access health informa tion online Indication:Nonsmoker Start:07-Oct-2019 Instruction Type:Patient Education How to access health informa tion online - Detail Indication:Nonsmoker Start:07-Oct-2019 Instruction Type:Patient Education Patient Instructions Indication:Nonsmoker Start:07-Oct-2019 Instruction Type:Provider Instructions for Treatment How to access health informa tion online Indication:Abnormal glucose tolerance test Start:22-Apr-2018 Instruction Type:Patient Education How to access health informa tion online - Detail Indication:Abnormal glucose tolerance test Start:22-Apr-2018 Instruction Type:Patient Education Patient Instructions Indication:Obstructive sleep apnea, adult Start:22-Apr-2018 Instruction Type:Provider Instructions for Treatment Patient Instructions Indication:Abnormal cardiac function test Start:18-May-2016 Instruction Type:Provider Instructions for Treatment How to access health informa tion online Indication:Abnormal glucose tolerance test Start:18-Oct-2015 Instruction Type:Patient Education How to access health informa tion online - Detail Indication:Abnormal glucose tolerance test Start:18-Oct-2015 Instruction Type:Patient Education Patient Instructions Indication:Abnormal glucose tolerance test Start:18-Oct-2015 Instruction Type:Provider Instructions for Treatment Patient Instructions Indication:Depressive disorder Start:06-Jul-2013 Instruction Type:Provider Instructions for Treatment [facility] Work Phone: Family History Unknown Family Member Name Dates Details Father Comments:Pancreatic [place] Status:Active Mother Comments:Depression Status:Active Unknown Family Member Name Dates Details Father Comments:Pancreatic [place] Status:Active Mother Comments:Depression Status:Active Unknown Family Member Name Dates Details Father Comments:Pancreatic [place] Status:Active Mother Comments:Depression Status:Active Unknown Family Member Name Dates Details Father Comments:Pancreatic [place] Status:Active Mother Comments:Depression Status:Active Unknown Family Member Name Dates Details Father Comments:Pancreatic [place] Status:Active Mother Comments:Depression Status:Active Unknown Family Member Name Dates Details Father Comments:Pancreatic [place] Status:Active Mother Comments:Depression Status:Active Unknown Family Member Name Dates Details Father Comments:Pancreatic [place] Status:Active Mother Comments:Depression Status:Active Unknown Family Member Name Dates Details Father Comments:Pancreatic [place] Status:Active Mother Comments:Depression Status:Active Unknown Family Member Name Dates Details Father Comments:Pancreatic [place] Status:Active Mother Comments:Depression Status:Active Unknown Family Member Name Dates Details Father Comments:Pancreatic [place] Status:Active Mother Comments:Depression Status:Active Unknown Family Member Name Dates Details Father Comments:Pancreatic [place] Status:Active Mother Comments:Depression Status:Active Unknown Family Member Name Dates Details Father Comments:Pancreatic [place] Status:Active Mother Comments:Depression Status:Active Unknown Family Member Name Dates Details Father Comments:Pancreatic [place] Status:Active Mother Comments:Depression Status:Active Unknown Family Member Name Dates Details Father Comments:Pancreatic [place] Status:Active Mother Comments:Depression Status:Active Unknown Family Member Name Dates Details Father Comments:Pancreatic [place] Status:Active Mother Comments:Depression Status:Active Unknown Family Member Name Dates Details Father Comments:Pancreatic [place] Status:Active Mother Comments:Depression Status:Active Unknown Family Member Name Dates Details Father Comments:Pancreatic [place] Status:Active Mother Comments:Depression Status:Active Unknown Family Member Name Dates Details Father Comments:Pancreatic [place] Status:Active Mother Comments:Depression Status:Active Unknown Family Member Name Dates Details Father Comments:Pancreatic [place] Status:Active Mother Comments:Depression Status:Active Unknown Family Member Name Dates Details Father Comments:Pancreatic [place] Status:Active Mother Comments:Depression Status:Active Unknown Family Member Name Dates Details Father Comments:Pancreatic [place] Status:Active Mother Comments:Depression Status:Active Unknown Family Member Name Dates Details Father Comments:Pancreatic [place] Status:Active Mother Comments:Depression Status:Active Unknown Family Member Name Dates Details Father Comments:Pancreatic [place] Status:Active Mother Comments:Depression Status:Active Unknown Family Member Name Dates Details Father Comments:Pancreatic [place] Status:Active Mother Comments:Depression Status:Active Unknown Family Member Name Dates Details Father Comments:Pancreatic [place] Status:Active Mother Comments:Depression Status:Active Unknown Family Member Name Dates Details Father Comments:Pancreatic [place] Status:Active Mother Comments:Depression Status:Active Unknown Family Member Name Dates Details Father Comments:Pancreatic [place] Status:Active Mother Comments:Depression Status:Active Instructions Name Dates Details How to access health informa tion online Indication:Abnormal glucose tolerance test Start:22-Apr-2018 Instruction Type:Patient Education How to access health informa tion online - Detail Indication:Abnormal glucose tolerance test Start:22-Apr-2018 Instruction Type:Patient Education Patient Instructions Indication:Obstructive sleep apnea, adult Start:22-Apr-2018 Instruction Type:Provider Instructions for Treatment Patient Instructions Indication:Abnormal cardiac function test Start:18-May-2016 Instruction Type:Provider Instructions for Treatment How to access health informa tion online Indication:Abnormal glucose tolerance test Start:18-Oct-2015 Instruction Type:Patient Education How to access health informa tion online - Detail Indication:Abnormal glucose tolerance test Start:18-Oct-2015 Instruction Type:Patient Education Patient Instructions Indication:Abnormal glucose tolerance test Start:18-Oct-2015 Instruction Type:Provider Instructions for Treatment Patient Instructions Indication:Depressive disorder Start:06-Jul-2013 Instruction Type:Provider Instructions for Treatment Name Dates Details How to access health informa tion online Indication:Nonsmoker Start:29-Mar-2020 Instruction Type:Patient Education How to access health informa tion online - Detail Indication:Nonsmoker Start:29-Mar-2020 Instruction Type:Patient Education Patient Instructions Indication:Nonsmoker Start:29-Mar-2020 Instruction Type:Provider Instructions for Treatment How to access health informa tion online Indication:Nonsmoker Start:23-Dec-2019 Instruction Type:Patient Education How to access health informa tion online - Detail Indication:Nonsmoker Start:23-Dec-2019 Instruction Type:Patient Education Patient Instructions Indication:BMI 27.0-27.9,adult Start:23-Dec-2019 Instruction Type:Provider Instructions for Treatment How to access health informa tion online Indication:Nonsmoker Start:23-Oct-2019 Instruction Type:Patient Education How to access health informa tion online - Detail Indication:Nonsmoker Start:23-Oct-2019 Instruction Type:Patient Education Patient Instructions Indication:Nonsmoker Start:23-Oct-2019 Instruction Type:Provider Instructions for Treatment How to access health informa tion online Indication:BMI 27.0-27.9,adult Start:21-Oct-2019 Instruction Type:Patient Education How to access health informa tion online - Detail Indication:BMI 27.0-27.9,adult Start:21-Oct-2019 Instruction Type:Patient Education Patient Instructions Indication:BMI 27.0-27.9,adult Start:21-Oct-2019 Instruction Type:Provider Instructions for Treatment How to access health informa tion online Indication:Nonsmoker Start:07-Oct-2019 Instruction Type:Patient Education How to access health informa tion online - Detail Indication:Nonsmoker Start:07-Oct-2019 Instruction Type:Patient Education Patient Instructions Indication:Nonsmoker Start:07-Oct-2019 Instruction Type:Provider Instructions for Treatment How to access health informa tion online Indication:Abnormal glucose tolerance test Start:22-Apr-2018 Instruction Type:Patient Education How to access health informa tion online - Detail Indication:Abnormal glucose tolerance test Start:22-Apr-2018 Instruction Type:Patient Education Patient Instructions Indication:Obstructive sleep apnea, adult Start:22-Apr-2018 Instruction Type:Provider Instructions for Treatment Patient Instructions Indication:Abnormal cardiac function test Start:18-May-2016 Instruction Type:Provider Instructions for Treatment How to access health informa tion online Indication:Abnormal glucose tolerance test Start:18-Oct-2015 Instruction Type:Patient Education How to access health informa tion online - Detail Indication:Abnormal glucose tolerance test Start:18-Oct-2015 Instruction Type:Patient Education Patient Instructions Indication:Abnormal glucose tolerance test Start:18-Oct-2015 Instruction Type:Provider Instructions for Treatment Patient Instructions Indication:Depressive disorder Start:06-Jul-2013 Instruction Type:Provider Instructions for Treatment Name Dates Details How to access health informa tion online Indication:Nonsmoker Start:29-Jun-2020 Instruction Type:Patient Education How to access health informa tion online - Detail Indication:Nonsmoker Start:29-Jun-2020 Instruction Type:Patient Education Patient Instructions Indication:Nonsmoker Start:29-Jun-2020 Instruction Type:Provider Instructions for Treatment How to access health informa tion online Indication:Nonsmoker Start:29-Mar-2020 Instruction Type:Patient Education How to access health informa tion online - Detail Indication:Nonsmoker Start:29-Mar-2020 Instruction Type:Patient Education Patient Instructions Indication:Nonsmoker Start:29-Mar-2020 Instruction Type:Provider Instructions for Treatment How to access health informa tion online Indication:Nonsmoker Start:23-Dec-2019 Instruction Type:Patient Education How to access health informa tion online - Detail Indication:Nonsmoker Start:23-Dec-2019 Instruction Type:Patient Education Patient Instructions Indication:BMI 27.0-27.9,adult Start:23-Dec-2019 Instruction Type:Provider Instructions for Treatment How to access health informa tion online Indication:Nonsmoker Start:23-Oct-2019 Instruction Type:Patient Education How to access health informa tion online - Detail Indication:Nonsmoker Start:23-Oct-2019 Instruction Type:Patient Education Patient Instructions Indication:Nonsmoker Start:23-Oct-2019 Instruction Type:Provider Instructions for Treatment How to access health informa tion online Indication:BMI 27.0-27.9,adult Start:21-Oct-2019 Instruction Type:Patient Education How to access health informa tion online - Detail Indication:BMI 27.0-27.9,adult Start:21-Oct-2019 Instruction Type:Patient Education Patient Instructions Indication:BMI 27.0-27.9,adult Start:21-Oct-2019 Instruction Type:Provider Instructions for Treatment How to access health informa tion online Indication:Nonsmoker Start:07-Oct-2019 Instruction Type:Patient Education How to access health informa tion online - Detail Indication:Nonsmoker Start:07-Oct-2019 Instruction Type:Patient Education Patient Instructions Indication:Nonsmoker Start:07-Oct-2019 Instruction Type:Provider Instructions for Treatment How to access health informa tion online Indication:Abnormal glucose tolerance test Start:22-Apr-2018 Instruction Type:Patient Education How to access health informa tion online - Detail Indication:Abnormal glucose tolerance test Start:22-Apr-2018 Instruction Type:Patient Education Patient Instructions Indication:Obstructive sleep apnea, adult Start:22-Apr-2018 Instruction Type:Provider Instructions for Treatment Patient Instructions Indication:Abnormal cardiac function test Start:18-May-2016 Instruction Type:Provider Instructions for Treatment How to access health informa tion online Indication:Abnormal glucose tolerance test Start:18-Oct-2015 Instruction Type:Patient Education How to access health informa tion online - Detail Indication:Abnormal glucose tolerance test Start:18-Oct-2015 Instruction Type:Patient Education Patient Instructions Indication:Abnormal glucose tolerance test Start:18-Oct-2015 Instruction Type:Provider Instructions for Treatment Patient Instructions Indication:Depressive disorder Start:06-Jul-2013 Instruction Type:Provider Instructions for Treatment Name Dates Details How to access health informa tion online Indication:Nonsmoker Start:29-Jun-2020 Instruction Type:Patient Education How to access health informa tion online - Detail Indication:Nonsmoker Start:29-Jun-2020 Instruction Type:Patient Education Patient Instructions Indication:BMI 27.0-27.9,adult Start:29-Jun-2020 Instruction Type:Provider Instructions for Treatment How to access health informa tion online Indication:Nonsmoker Start:29-Mar-2020 Instruction Type:Patient Education How to access health informa tion online - Detail Indication:Nonsmoker Start:29-Mar-2020 Instruction Type:Patient Education Patient Instructions Indication:Nonsmoker Start:29-Mar-2020 Instruction Type:Provider Instructions for Treatment How to access health informa tion online Indication:Nonsmoker Start:23-Dec-2019 Instruction Type:Patient Education How to access health informa tion online - Detail Indication:Nonsmoker Start:23-Dec-2019 Instruction Type:Patient Education Patient Instructions Indication:BMI 27.0-27.9,adult Start:23-Dec-2019 Instruction Type:Provider Instructions for Treatment How to access health informa tion online Indication:Nonsmoker Start:23-Oct-2019 Instruction Type:Patient Education How to access health informa tion online - Detail Indication:Nonsmoker Start:23-Oct-2019 Instruction Type:Patient Education Patient Instructions Indication:Nonsmoker Start:23-Oct-2019 Instruction Type:Provider Instructions for Treatment How to access health informa tion online Indication:BMI 27.0-27.9,adult Start:21-Oct-2019 Instruction Type:Patient Education How to access health informa tion online - Detail Indication:BMI 27.0-27.9,adult Start:21-Oct-2019 Instruction Type:Patient Education Patient Instructions Indication:BMI 27.0-27.9,adult Start:21-Oct-2019 Instruction Type:Provider Instructions for Treatment How to access health informa tion online Indication:Nonsmoker Start:07-Oct-2019 Instruction Type:Patient Education How to access health informa tion online - Detail Indication:Nonsmoker Start:07-Oct-2019 Instruction Type:Patient Education Patient Instructions Indication:Nonsmoker Start:07-Oct-2019 Instruction Type:Provider Instructions for Treatment How to access health informa tion online Indication:Abnormal glucose tolerance test Start:22-Apr-2018 Instruction Type:Patient Education How to access health informa tion online - Detail Indication:Abnormal glucose tolerance test Start:22-Apr-2018 Instruction Type:Patient Education Patient Instructions Indication:Obstructive sleep apnea, adult Start:22-Apr-2018 Instruction Type:Provider Instructions for Treatment Patient Instructions Indication:Abnormal cardiac function test Start:18-May-2016 Instruction Type:Provider Instructions for Treatment How to access health informa tion online Indication:Abnormal glucose tolerance test Start:18-Oct-2015 Instruction Type:Patient Education How to access health informa tion online - Detail Indication:Abnormal glucose tolerance test Start:18-Oct-2015 Instruction Type:Patient Education Patient Instructions Indication:Abnormal glucose tolerance test Start:18-Oct-2015 Instruction Type:Provider Instructions for Treatment Patient Instructions Indication:Depressive disorder Start:06-Jul-2013 Instruction Type:Provider Instructions for Treatment Name Dates Details How to access health informa tion online Indication:Nonsmoker Start:29-Jun-2020 Instruction Type:Patient Education How to access health informa tion online - Detail Indication:Nonsmoker Start:29-Jun-2020 Instruction Type:Patient Education Patient Instructions Indication:BMI 27.0-27.9,adult Start:29-Jun-2020 Instruction Type:Provider Instructions for Treatment How to access health informa tion online Indication:Nonsmoker Start:29-Mar-2020 Instruction Type:Patient Education How to access health informa tion online - Detail Indication:Nonsmoker Start:29-Mar-2020 Instruction Type:Patient Education Patient Instructions Indication:Nonsmoker Start:29-Mar-2020 Instruction Type:Provider Instructions for Treatment How to access health informa tion online Indication:Nonsmoker Start:23-Dec-2019 Instruction Type:Patient Education How to access health informa tion online - Detail Indication:Nonsmoker Start:23-Dec-2019 Instruction Type:Patient Education Patient Instructions Indication:BMI 27.0-27.9,adult Start:23-Dec-2019 Instruction Type:Provider Instructions for Treatment How to access health informa tion online Indication:Nonsmoker Start:23-Oct-2019 Instruction Type:Patient Education How to access health informa tion online - Detail Indication:Nonsmoker Start:23-Oct-2019 Instruction Type:Patient Education Patient Instructions Indication:Nonsmoker Start:23-Oct-2019 Instruction Type:Provider Instructions for Treatment How to access health informa tion online Indication:BMI 27.0-27.9,adult Start:21-Oct-2019 Instruction Type:Patient Education How to access health informa tion online - Detail Indication:BMI 27.0-27.9,adult Start:21-Oct-2019 Instruction Type:Patient Education Patient Instructions Indication:BMI 27.0-27.9,adult Start:21-Oct-2019 Instruction Type:Provider Instructions for Treatment How to access health informa tion online Indication:Nonsmoker Start:07-Oct-2019 Instruction Type:Patient Education How to access health informa tion online - Detail Indication:Nonsmoker Start:07-Oct-2019 Instruction Type:Patient Education Patient Instructions Indication:Nonsmoker Start:07-Oct-2019 Instruction Type:Provider Instructions for Treatment How to access health informa tion online Indication:Abnormal glucose tolerance test Start:22-Apr-2018 Instruction Type:Patient Education How to access health informa tion online - Detail Indication:Abnormal glucose tolerance test Start:22-Apr-2018 Instruction Type:Patient Education Patient Instructions Indication:Obstructive sleep apnea, adult Start:22-Apr-2018 Instruction Type:Provider Instructions for Treatment Patient Instructions Indication:Abnormal cardiac function test Start:18-May-2016 Instruction Type:Provider Instructions for Treatment How to access health informa tion online Indication:Abnormal glucose tolerance test Start:18-Oct-2015 Instruction Type:Patient Education How to access health informa tion online - Detail Indication:Abnormal glucose tolerance test Start:18-Oct-2015 Instruction Type:Patient Education Patient Instructions Indication:Abnormal glucose tolerance test Start:18-Oct-2015 Instruction Type:Provider Instructions for Treatment Patient Instructions Indication:Depressive disorder Start:06-Jul-2013 Instruction Type:Provider Instructions for Treatment Name Dates Details How to access health informa tion online Indication:Nonsmoker Start:29-Jun-2020 Instruction Type:Patient Education How to access health informa tion online - Detail Indication:Nonsmoker Start:29-Jun-2020 Instruction Type:Patient Education Patient Instructions Indication:BMI 27.0-27.9,adult Start:29-Jun-2020 Instruction Type:Provider Instructions for Treatment How to access health informa tion online Indication:Nonsmoker Start:29-Mar-2020 Instruction Type:Patient Education How to access health informa tion online - Detail Indication:Nonsmoker Start:29-Mar-2020 Instruction Type:Patient Education Patient Instructions Indication:Nonsmoker Start:29-Mar-2020 Instruction Type:Provider Instructions for Treatment How to access health informa tion online Indication:Nonsmoker Start:23-Dec-2019 Instruction Type:Patient Education How to access health informa tion online - Detail Indication:Nonsmoker Start:23-Dec-2019 Instruction Type:Patient Education Patient Instructions Indication:BMI 27.0-27.9,adult Start:23-Dec-2019 Instruction Type:Provider Instructions for Treatment How to access health informa tion online Indication:Nonsmoker Start:23-Oct-2019 Instruction Type:Patient Education How to access health informa tion online - Detail Indication:Nonsmoker Start:23-Oct-2019 Instruction Type:Patient Education Patient Instructions Indication:Nonsmoker Start:23-Oct-2019 Instruction Type:Provider Instructions for Treatment How to access health informa tion online Indication:BMI 27.0-27.9,adult Start:21-Oct-2019 Instruction Type:Patient Education How to access health informa tion online - Detail Indication:BMI 27.0-27.9,adult Start:21-Oct-2019 Instruction Type:Patient Education Patient Instructions Indication:BMI 27.0-27.9,adult Start:21-Oct-2019 Instruction Type:Provider Instructions for Treatment How to access health informa tion online Indication:Nonsmoker Start:07-Oct-2019 Instruction Type:Patient Education How to access health informa tion online - Detail Indication:Nonsmoker Start:07-Oct-2019 Instruction Type:Patient Education Patient Instructions Indication:Nonsmoker Start:07-Oct-2019 Instruction Type:Provider Instructions for Treatment How to access health informa tion online Indication:Abnormal glucose tolerance test Start:22-Apr-2018 Instruction Type:Patient Education How to access health informa tion online - Detail Indication:Abnormal glucose tolerance test Start:22-Apr-2018 Instruction Type:Patient Education Patient Instructions Indication:Obstructive sleep apnea, adult Start:22-Apr-2018 Instruction Type:Provider Instructions for Treatment Patient Instructions Indication:Abnormal cardiac function test Start:18-May-2016 Instruction Type:Provider Instructions for Treatment How to access health informa tion online Indication:Abnormal glucose tolerance test Start:18-Oct-2015 Instruction Type:Patient Education How to access health informa tion online - Detail Indication:Abnormal glucose tolerance test Start:18-Oct-2015 Instruction Type:Patient Education Patient Instructions Indication:Abnormal glucose tolerance test Start:18-Oct-2015 Instruction Type:Provider Instructions for Treatment Patient Instructions Indication:Depressive disorder Start:06-Jul-2013 Instruction Type:Provider Instructions for Treatment Advance Directives Name Dates Details Immunization Registry [place] - Effective on 12/28/2020. Expiration date unspecified Effective:28-Dec-2020 Name Dates Details Immunization Registry [place] - Effective on 12/28/2020. Expiration date unspecified Effective:28-Dec-2020 Name Dates Details Immunization Registry [place] - Effective on 12/28/2020. Expiration date unspecified Effective:28-Dec-2020 Name Dates Details Immunization Registry [place] - Effective on 12/28/2020. Expiration date unspecified Effective:28-Dec-2020 Name Dates Details Immunization Registry [place] - Effective on 12/28/2020. Expiration date unspecified Effective:28-Dec-2020 Name Dates Details Immunization Registry [place] - Effective on 12/28/2020. Expiration date unspecified Effective:28-Dec-2020 Name Dates Details Immunization Registry [place] - Effective on 12/28/2020. Expiration date unspecified Effective:28-Dec-2020 Name Dates Details Immunization Registry [place] - Effective on 12/28/2020. Expiration date unspecified Effective:28-Dec-2020 Name Dates Details Immunization Registry [place] - Effective on 12/28/2020. Expiration date unspecified Effective:28-Dec-2020 Name Dates Details Immunization Registry [place] - Effective on 12/28/2020. Expiration date unspecified Effective:28-Dec-2020 Name Dates Details Immunization Registry [place] - Effective on 12/28/2020. Expiration date unspecified Effective:28-Dec-2020 Name Dates Details Immunization Registry [place] - Effective on 12/28/2020. Expiration date unspecified Effective:28-Dec-2020 Name Dates Details Immunization Registry [place] - Effective on 12/28/2020. Expiration date unspecified Effective:28-Dec-2020 Name Dates Details Immunization Registry [place] - Effective on 12/28/2020. Expiration date unspecified Effective:28-Dec-2020 Name Dates Details Immunization Registry [place] - Effective on 12/28/2020. Expiration date unspecified Effective:28-Dec-2020 Name Dates Details Immunization Registry [place] - Effective on 12/28/2020. Expiration date unspecified Effective:28-Dec-2020 Name Dates Details Immunization Registry [place] - Effective on 12/28/2020. Expiration date unspecified Effective:28-Dec-2020 Name Dates Details Immunization Registry [place] - Effective on 12/28/2020. Expiration date unspecified Effective:28-Dec-2020 Summary Purpose Additional Source Comments (unrecognized sect ion and content) No Status Records Found INFORMATION SOURCE (unrecogn ized section and content) FOR RECORDS PERTAINING TO PATIENTS WHO ARE OR HAVE BEEN ENROLLED IN A CHEMICAL DEPENDENCY/SUBSTANCEABUSE PROGRAM, SOME INFORMATION MAY BE OMITTED. This clinical summary was aggregated from multiple sources. Caution should be exercised in using it in the provision of clinical care. This summary normalizes information from multiple sources, and as a consequence, information in this document may materially change the coding, format and clinical context of patient data. In addition, data may be omitted in some cases. CLINICAL DECISIONS SHOULD BE BASED ON THE PRIMARY CLINICAL RECORDS. [facility] [email or web address] provides no warranty or guarantee of the accuracy or completeness of information in this document.
== END | disposition home or self-care (01) ==
LOC: CVS 08:02
PROVIDERS: PCP Nurse Practitioner Family; Referring Provider Nurse Practitioner Family; Visit Provider Nurse Practitioner Family
DX: I10 Essential (primary) hypertension (principal); R01.1 Cardiac murmur, unspecified
CPT/HCPCS: 93306